=== PATIENT | female | born 1940 | race Caucasian/White ===

== ENCOUNTER 2024-11-14 08:58 | Outpatient (CLI) | payer MEDICARE, SELFPAY ==
--- OUTSIDE RECORDS SUMMARY | 2024-11-14 09:50 | XMS_ITS | Encounter Summary ---
Author Organization [facility] Address [address] [place] [address] Phone Care Team Providers Care Chrome Cleaner Name Role Phone Martinez Boyce MD Unavailable [phone] Jacob Miranda DPM Unavailable [phone] Abel Middleton Primary Care Provider Abel Middleton Primary Care Provider He Whitney MD Primary Care Provider [phone] Encounter Details Date Type Department Care Team (Late st Contact Info) Description 04/16/2022 Telephone [facility] Surgery [address] [place] [address] [address] [place] [address] [place] Social History Tobacco Use Types Packs/Day Years Used Date Smoking Tobacco: Never Smokeless Tobacco: Never Alcohol Use Standard Drinks/Week Comments No 0 (1 standard drink = 0.6 oz pur e alcohol) PHQ-2 Answer Date Recorded PHQ-2 Total Score (If total score is 3 or more points, staff should administer the PHQ-9) 0 04/10/2022 Comments No Sex and Gender Information Value Date Recorded Sex Assigned at Not on file Legal Sex Female 11:51 PM [employer] Gender Identity Not on file Sexual Orientation Not on file documented as of this encounter Plan of Treatment Not on file documented as of this encounter Visit Diagnoses Not on filedocumented in this encounter Care Teams Chrome Cleaner Relationship Specialty Start Date End Date Abel Middleton PA [address] [place] [address] [place] [address] PCP - General Internal Medicine 05/08/22 05/17/24 Abel Middleton PA [address] [place] [address] [place] [address] PCP - General Internal Medicine 01/31/22 05/07/22 He Whitney MD [address] [place] [address] [place] [address] PCP - General Family Practice 06/01/24 Martinez Boyce MD [address] [facility] [address] [place] [address] Referring Physician Gastroenterology 04/12/18 01/10/24 Jacob Miranda, DPM [address] [place] [address] Consulting Physician Orthopedic Surgery 07/23/21 documented as of this encounter
--- OUTSIDE RECORDS SUMMARY | 2024-11-14 09:50 | XMS_ITS | Clinical Summary ---
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 100 each 3 1 Active lancets (ACCU-CHEK SOFTCLIX LANCETS) misc USE 1 DAILY 100 each 7 Active blood glucose diagnostic (ACCU-CHEK SMARTVIEW TEST STRIP) stripIndication s:Type 2 diabetes mellitus with complication, with long-term current use of insulin (HCC) Test once daily 50 each 11 8 Active acetaminophen (TYLENOL) 500 mg tablet Take 1 tablet (500 mg total) by mouth every 6 (six) hours as needed for pain Active cinnamon bark 500 mg capsule Take 2 capsules (1,000 mg total) by mouth every morning supplement Active cetirizine (ZyrTEC) 10 mg tablet Take 1 tablet (10 mg total) by mouth daily Active cholecalciferol (VITAMIN D-3) 5,000 unit capsule Take 1 capsule (5,000 Units total) by mouth daily Active losartan (COZAAR) 100 mg tablet Take 1 tablet by mouth once daily 90 tablet 3 3 Active clopidogreL (PLAVIX) 75 mg tablet Take 1 tablet by mouth once daily 90 tablet 3 3 Active spironolactone (ALDACTONE) 25 mg tablet Take 1 tablet by mouth once daily 90 tablet 3 3 Active alendronate (FOSAMAX) 70 mg tablet Take 1 tablet (70 mg total) by mouth every 7 days Take in the morning with a full glass of water, on an empty stomach, and do not take anything else by mouth or lie down for the next 30 min. 12 tablet 4 4 01/20/20 25 Active atorvastatin (LIPITOR) 10 mg tablet Take 1 tablet (10 mg total) by mouth daily 90 tablet 3 4 Active Active Problems Problem Noted Date Diagnosed Date Morbid obesity with BMI of 45.0-49.9, adult 04/09 Assessment & Plan (09/10/2023 6:58 AM STAFF CONSULTANT): The patient was counseled on the importance of maintaining a healthy weight and the risks of obesity. Weight loss recommended. Assessment & Plan (05/06/2023 12:37 PM CDT): She was counseled on the importance of maintaining a healthy weight and the risks of obesity. Weight loss recommended. Pure hypercholesterolemia 11/21/2022 Assessment & Plan (01/11/2024 7:45 AM CDT): Counseled on heart healthy diet exercise Assessment & Plan (09/10/2023 6:58 AM STAFF CONSULTANT): Counseled on heart healthy diet exercise Left carpal tunnel syndrome 04/14/2022 Overview (04/14/2022): Added automatically from request for surgery [id number] Pronator syndrome of left upper extremity 2021 Overview (04/14/2022): Added automatically from request for surgery [id number] Varicose veins of right lower extremity 07/23/20 20 Assessment & Plan (07/23/2020 3:00 PM STAFF CONSULTANT): Pain brings her in wory about Dvt. Pain r lower leg And b=moves some from calf to lower leg . No swelling no edema. Ankle not inflamed or tender. Sleeping in c hair with foot down Thru night 1/2 the night Does not allowthe pressure off wear suport hose unless can gethte leg up and withhte back and hip will struggle to get up. enougoh no signs clot Excessive vitamin B12 intake 07/03/2020 Assessment & Plan (03/18/2021 10:47 AM CDT): Vit b12 from 3000 to 716 and now 490. 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 Assessment & Plan (07/03/2020 9:48 AM CDT): Mild carpal tunnel a1c at 7.0 and good for her at this age no changsDiabetes management or controll revolves around several core concepts : weight controll,controlling the intake of rapidly absorbed sugars(read simple carbs that get rapidly absorbed such as sweetened tea,sugared soda,fruit juices or portions of fruit over 1/2 cup at a time) as well at the need to increase the sugar burned up through an n increase in your baseline activity.Breads,potatotes(white,yellow,sweet are all the same),most cereals and noodles all breakdown to sugar rapidly. This rapid breakdown or absorption challenges the body into handling this surge of sugar. The more these factors are controlled the more the sugar will be controlled. Assessment & Plan (08/01/2019 10:23 AM STAFF CONSULTANT): Consider cockcup splints and report droping things Assessment & Plan (03/30/2019 3:13 PM CDT): Bilateral carpal tunnel and not D ropoing things and l much more issue then r. Ulnar nerve as well . 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 If worse then neuro test. Type 2 diabetes mellitus with hyperlipidemia Assessment & Plan (01/11/2024 7:45 AM CDT): The patient was counseled on a heart-healthy, diabetic-friendly diet, as well as life-style modification. Education provided on the diagnosis and risks of the disease. We will continue to monitor routine labs. Additionally, the patient was counseled on routine diabetic eye exams, foot exams, and other preventive care. Assessment & Plan (09/10/2023 6:58 AM STAFF CONSULTANT): The patient was counseled on a heart-healthy, diabetic-friendly diet, as well as life-style modification. Education provided on the diagnosis and risks of the disease. We will continue to monitor routine labs. Additionally, the patient was counseled on routine diabetic eye exams, foot exams, and other preventive care. Assessment & Plan (05/06/2023 12:37 PM CDT): The patient was counseled on a heart-healthy, diabetic-friendly diet, as well as life-style modification. Education provided on the diagnosis and risks of the disease. We will continue to monitor routine labs. Additionally, She was counseled on routine diabetic eye exams, foot exams, and other preventive care. Assessment & Plan (07/24/2022 9:34 AM STAFF CONSULTANT): The patient was counseled on a heart-healthy, diabetic-friendly diet, as well as life-style modification. Education provided on the diagnosis and risks of the disease. We will continue to monitor routine labs. Additionally, the patient was counseled on routine diabetic eye exams, foot exams, and other preventive care. Assessment & Plan (04/10/2022 9:28 AM CDT): ldl at 73 and was 62. If drift up wotul pusph lower on 10 mg nowYour cholesterol in the form of ldl (bad) cholesterol,hdl(good) cholesterol and triglycerides are monitored. The triglycerides respond to reduction/controll of your simple carbs/sugars In such items as sugared soda/sweet tea along with fruit juices(containing natural sugar) even if no added sugar is added. LDL cholesterol is reduced with reducing daily intake of fats and yong. saturated fats. The monosaturated fats like olive oil are not harmful except in the calories they contained. Whole milk cheese needs to be remembered along with whole milk products And limited. Assessment & Plan (12/04/2021 8:08 AM CDT): The patient was counseled on a heart-healthy, diabetic-friendly diet, as well as life-style modification. Education provided on the diagnosis and risks of the disease. We will continue to monitor routine labs. Additionally, the patient was counseled on routine diabetic eye exams, foot exams, and other preventive care. Assessment & Plan (07/23/2021 10:50 AM STAFF CONSULTANT): L;dl at 57 and good and cont meds as on Your cholesterol in the form of ldl (bad) cholesterol,hdl(good) cholesterol and triglycerides are monitored. The triglycerides respond to reduction/controll of your simple carbs/sugars In such items as sugared soda/sweet tea along with fruit juices(containing natural sugar) even if no added sugar is added. LDL cholesterol is reduced with reducing daily intake of fats and yong. saturated fats. The monosaturated fats like olive oil are not harmful except in the calories they contained. Whole milk cheese needs to be remembered along with whole milk products And limited. Assessment & Plan (03/18/2021 10:48 AM CDT): ldl at 65 and was 71 so keep same and a1c drifting down from 7.1 and 6.9 and now 6.76 so driftingdown and better and staywth what dieet doing Your cholesterol in the form of ldl (bad) cholesterol,hdl(good) cholesterol and triglycerides are monitored. The triglycerides respond to reduction/controll of your simple carbs/sugars In such items as sugared soda/sweet tea along with fruit juices(containing natural sugar) even if no added sugar is added. LDL cholesterol is reduced with reducing daily intake of fats and yong. saturated fats. The monosaturated fats like olive oil are not harmful except in the calories they contained. Whole milk cheese needs to be remembered along with whole milk products And limited. Assessment & Plan (11/13/2020 9:53 AM STAFF CONSULTANT): ldl at 71 and would levave alone. Your cholesterol in the form of ldl (bad) cholesterol,hdl(good) cholesterol and triglycerides are monitored. The triglycerides respond to reduction/controll of your simple carbs/sugars In such items as sugared soda/sweet tea along with fruit juices(containing natural sugar) even if no added sugar is added. LDL cholesterol is reduced with reducing daily intake of fats and yong. saturated fats. The monosaturated fats like olive oil are not harmful except in the calories they contained. Whole milk cheese needs to be remembered along with whole milk products And limited. Assessment & Plan (07/03/2020 9:50 AM CDT): ldl at 50 and g raet and no chages in medsYour cholesterol in the form of ldl (bad) cholesterol,hdl(good) cholesterol and triglycerides are monitored. The triglycerides respond to reduction/controll of your simple carbs/sugars In such items as sugared soda/sweet tea along with fruit juices(containing natural sugar) even if no added sugar is added. LDL cholesterol is reduced with reducing daily intake of fats and yong. saturated fats. The monosaturated fats like olive oil are not harmful except in the calories they contained. Whole milk cheese needs to be remembered along with whole milk products And limited. Assessment & Plan (08/01/2019 10:22 AM STAFF CONSULTANT): a1c at 6.6 and 6.5 cutoff no changes in meds and diet and ldl at 76 and good for now na1c up some and watch Holidays some and if goes nooooooooooore then consider med changedYour cholesterol in the form of ldl (bad) cholesterol,hdl(good) cholesterol and triglycerides are monitored. The triglycerides respond to reduction/controll of your simple carbs/sugars In such items as sugared soda/sweet tea along with fruit juices(containing natural sugar) even if no added sugar is added. LDL cholesterol is reduced with reducing daily intake of fats and yong. saturated fats. The monosaturated fats like olive oil are not harmful except in the calories they contained. Whole milk cheese needs to be remembered along with whole milk products And limited.Diabetes management or controll revolves around several core concepts : weight controll,controlling the intake of rapidly absorbed sugars(read simple carbs that get rapidly absorbed such as sweetened tea,sugared soda,fruit juices or portions of fruit over 1/2 cup at a time) as well at the need to increase the sugar burned up through an n increase in your baseline activity.Breads,potatotes(white,yellow,sweet are all the same),most cereals and noodles all breakdown to sugar rapidly. This rapid breakdown or absorption challenges the body into handling this surge of sugar. The more these factors are controlled the more the sugar will be controlled. Assessment & Plan (03/30/2019 3:06 PM CDT): ldl at 81 dn with arterial isxue want tighter. On pravastatin and 20 will ask to chanvged to atorvastin 10 and will be alittle more potent and beeter for brain. Your cholesterol in the form of ldl (bad) cholesterol,hdl(good) cholesterol and triglycerides are monitored. The triglycerides respond to reduction/controll of your simple carbs/sugars In such items as sugared soda/sweet tea along with fruit juices(containing natural sugar) even if no added sugar is added. LDL cholesterol is reduced with reducing daily intake of fats and yong. saturated fats. The monosaturated fats like olive oil are not harmful except in the calories they contained. Whole milk cheese needs to be remembered along with whole milk products And limited. Assessment & Plan (11/22/2018 9:22 AM CDT): ldl at 72 and great and stable andhte a1c at 6.5 and well e controlled.no changesYour cholesterol in the form of ldl (bad) cholesterol,hdl(good) cholesterol and triglycerides are monitored. The triglycerides respond to reduction/controll of your simple carbs/sugars In such items as sugared soda/sweet tea along with fruit juices(containing natural sugar) even if no added sugar is added. LDL cholesterol is reduced with reducing daily intake of fats and yong. saturated fats. The monosaturated fats like olive oil are not harmful except in the calories they contained. Whole milk cheese needs to be remembered along with whole milk products And limited.Diabetes management or controll revolves around several core concepts : weight controll,controlling the intake of rapidly absorbed sugars(read simple carbs that get rapidly absorbed such as sweetened tea,sugared soda,fruit juices or portions of fruit over 1/2 cup at a time) as well at the need to increase the sugar burned up through an n increase in your baseline activity.Breads,potatotes(white,yellow,sweet are all the same),most cereals and noodles all breakdown to sugar rapidly. This rapid breakdown or absorption challenges the body into handling this surge of sugar. The more these factors are controlled the more the sugar will be controlled. Assessment & Plan (03/05/2018 10:01 AM CDT): ldl well less the 100. Cont eds anddietYour cholesterol in the form of ldl (bad) cholesterol,hdl(good) cholesterol and triglycerides are monitored. The triglycerides respond to reduction/controll of your simple carbs/sugars In such items as sugared soda/sweet tea along with fruit juices(containing natural sugar) even if no added sugar is added. LDL cholesterol is reduced with reducing daily intake of fats and yong. saturated fats. The monosaturated fats like olive oil are not harmful except in the calories they contained. Whole milk cheese needs to be remembered along with whole milk products And limited. Medicare annual wellness visit, subsequent 11/04 Assessment & Plan (09/10/2023 6:58 AM STAFF CONSULTANT): Discussed community resources and any need for referrals. Health risk assessment reviewed. Providers and care team suppliers up-to-date. Age-appropriate Medicare preventive services check list reviewed. Discussed physical activities. Assessment & Plan (07/23/2021 10:53 AM STAFF CONSULTANT): Well exzm depreosn screen neg and score 0. Cognitive screen neg. Out aged colon and armani. Had covid and p shot series shingles shot sseries Flu shot Had. Assessment & Plan (07/03/2020 9:52 AM CDT): Mod fall risk depreisn screen nl cog screen nl colon up to date flu shot and p shots up to datehad shingles shot s. Look at repeat p 23 on retuorn as 18 yrs. Assessment & Plan (03/30/2019 3:11 PM CDT): Mod fall risk dpressino screen nl.l dementia screen nll colon up to date agrees to have armani.had flu shot and hs had both p shtos consider shingles shot Assessment & Plan (11/04/2017 10:43 AM STAFF CONSULTANT): 5 yrs from last and proposed to repeat in 5yyrs. Colon oscopy versus cologuard was discussed Left-sided carotid artery disease 11/04/2017 Assessment & Plan (07/03/2020 9:48 AM CDT): Tight risk and will Recheck in spsring Assessment & Plan (03/30/2019 3:04 PM CDT): On plavix and not asa as can see hives with as and repeat in a yr + Assessment & Plan (11/22/2018 9:24 AM CDT): Several lyrs since checked and work to get D one Before return Assessment & Plan (11/04/2017 10:44 AM STAFF CONSULTANT): Mild and new findign . On plavix Risk conttrrolled and repeat in 1-2 yrs Venous stasis dermatitis of both lower extremiti es 06/30/2017 Assessment & Plan (06/30/2017 9:39 AM CDT): Pain apears veinous and sjupport hose should help the xcan of the arteries will ease mind and prove not leg losing risks. Lumbago with sciatica, left side 02/18/2017 Assessment & Plan (02/18/2017 10:42 AM CDT): The intermittent pain that Ebbs and fluxs with relief from tyleno wouldnot change a pproach and More activity and more wt off to help Vitamin D deficiency 01/21/2014 Overview (12/12/2016): VITAMIN D DEFICIENCY NOS Assessment & Plan (11/13/2020 9:51 AM STAFF CONSULTANT): Vit d great and no chages and keep meds same Assessment & Plan (07/03/2020 9:49 AM CDT): Check on return Osteoporosis 01/21/2014 Overview (12/12/2016): OSTEOPOROSIS NEC Hypertension associated with diabetes 01/21/2014 Overview (12/12/2016): BENIGN HYPERTENSION Assessment & Plan (01/11/2024 7:45 AM CDT): Recommend DASH diet, heart healthy lifestyle, exercise. Discussed the risks of hypertension. Assessment & Plan (09/10/2023 6:58 AM STAFF CONSULTANT): Recommend DASH diet, heart healthy lifestyle, exercise. Discussed the risks of hypertension. Assessment & Plan (05/06/2023 12:38 PM CDT): Recommend DASH diet, heart-healthy lifestyle, exercise. Discussed the risks of hypertension. Assessment & Plan (04/10/2022 9:27 AM CDT): bp good and a1c at 6.6 andstable diet Hypertension, Medical treament revolves around weight control, salt management, and meds when necessary. long as weight loss is necessary and you are able to drop weight we can cont to monitor the blood pressure and not add meds. Once the weight is not changing then it becomes nesessary to add meds to be able to reach the goal bp.Diabetes management or controll revolves around several core concepts : weight controll,controlling the intake of rapidly absorbed sugars(read simple carbs that get rapidly absorbed such as sweetened tea,sugared soda,fruit juices or portions of fruit over 1/2 cup at a time) as well at the need to increase the sugar burned up through an n increase in your baseline activity.Breads,potatotes(white,yellow,sweet are all the same),most cereals and noodles all breakdown to sugar rapidly. This rapid breakdown or absorption challenges the body into handling this surge of sugar. The more these factors are controlled the more the sugar will be controlled. Assessment & Plan (07/23/2021 10:49 AM STAFF CONSULTANT): a1c dropped reg to 6.5r now and cont meds as on the bp good and cont meds as no chags in meds Hypertension, Medical treament revolves around weight control, salt management, and meds when necessary. long as weight loss is necessary and you are able to drop weight we can cont to monitor the blood pressure and not add meds. Once the weight is not changing then it becomes nesessary to add meds to be able to reach the goal bp.Diabetes management or controll revolves around several core concepts : weight controll,controlling the intake of rapidly absorbed sugars(read simple carbs that get rapidly absorbed such as sweetened tea,sugared soda,fruit juices or portions of fruit over 1/2 cup at a time) as well at the need to increase the sugar burned up through an n increase in your baseline activity.Breads,potatotes(white,yellow,sweet are all the same),most cereals and noodles all breakdown to sugar rapidly. This rapid breakdown or absorption challenges the body into handling this surge of sugar. The more these factors are controlled the more the sugar will be controlled. Assessment & Plan (03/18/2021 10:50 AM CDT): bp high nl and stay on meds and watch and keep meds sameHypertension, Medical treament revolves around weight control, salt management, and meds when necessary. long as weight loss is necessary and you are able to drop weight we can cont to monitor the blood pressure and not add meds. Once the weight is not changing then it becomes nesessary to add meds to be able to reach the goal bp. Assessment & Plan (11/13/2020 9:52 AM STAFF CONSULTANT): The bp good and a1c 6.9 stable and cont meds and diets as onHypertension, Medical treament revolves around weight control, salt management, and meds when necessary. long as weight loss is necessary and you are able to drop weight we can cont to monitor the blood pressure and not add meds. Once the weight is not changing then it becomes nesessary to add meds to be able to reach the goal bp.Diabetes management or controll revolves around several core concepts : weight controll,controlling the intake of rapidly absorbed sugars(read simple carbs that get rapidly absorbed such as sweetened tea,sugared soda,fruit juices or portions of fruit over 1/2 cup at a time) as well at the need to increase the sugar burned up through an n increase in your baseline activity.Breads,potatotes(white,yellow,sweet are all the same),most cereals and noodles all breakdown to sugar rapidly. This rapid breakdown or absorption challenges the body into handling this surge of sugar. The more these factors are controlled the more the sugar will be controlled. Assessment & Plan (07/03/2020 9:49 AM CDT): The bp good and no c hagds inmedsHypertension, Medical treament revolves around weight control, salt management, and meds when necessary. long as weight loss is necessary and you are able to drop weight we can cont to monitor the blood pressure and not add meds. Once the weight is not changing then it becomes nesessary to add meds to be able to reach the goal bp. Assessment & Plan (02/22/2020 9:15 PM CDT): Recommend DASH diet, heart-healthy lifestyle, exercise. Discussed the risks of hypertension. Assessment & Plan (08/01/2019 10:22 AM STAFF CONSULTANT): The bp good and no chanes and monitor. Hypertension, Medical treament revolves around weight control, salt management, and meds when necessary. long as weight loss is necessary and you are able to drop weight we can cont to monitor the blood pressure and not add meds. Once the weight is not changing then it becomes nesessary to add meds to be able to reach the goal bp. Assessment & Plan (03/30/2019 3:05 PM CDT): htn good and no changes and a1c at 6.1 and no changesHypertension, Medical treament revolves around weight control, salt management, and meds when necessary. long as weight loss is necessary and you are able to drop weight we can cont to monitor the blood pressure and not add meds. Once the weight is not changing then it becomes nesessary to add meds to be able to reach the goal bp. Assessment & Plan (11/22/2018 9:22 AM CDT): The bp good and no changes. Hypertension, Medical treament revolves around weight control, salt management, and meds when necessary. long as weight loss is necessary and you are able to drop weight we can cont to monitor the blood pressure and not add meds. Once the weight is not changing then it becomes nesessary to add meds to be able to reach the goal bp. Assessment & Plan (08/19/2018 4:04 PM STAFF CONSULTANT): Recommend DASH diet, heart-healthy lifestyle, exercise. Discussed the risks of hypertension. Assessment & Plan (03/05/2018 10:00 AM CDT): bp well econtrolled and a1c at a1c at 6.4 and bp gereat. No changes and watch dietHypertension, Medical treament revolves around weight control, salt management, and meds when necessary. long as weight loss is necessary and you are able to drop weight we can cont to monitor the blood pressure and not add meds. Once the weight is not changing then it becomes nesessary to add meds to be able to reach the goal bp.Diabetes management or controll revolves around several core concepts : weight controll,controlling the intake of rapidly absorbed sugars(read simple carbs that get rapidly absorbed such as sweetened tea,sugared soda,fruit juices or portions of fruit over 1/2 cup at a time) as well at the need to increase the sugar burned up through an n increase in your baseline activity.Breads,potatotes(white,yellow,sweet are all the same),most cereals and noodles all breakdown to sugar rapidly. This rapid breakdown or absorption challenges the body into handling this surge of sugar. The more these factors are controlled the more the sugar will be controlled. Assessment & Plan (11/04/2017 10:42 AM STAFF CONSULTANT): As wt dropped and palns on more will cut the amlodipine into 1/2 and take 2.5 and se bp effect and if lose another 5 lbs thwen sstop and report off on return. Want to see early if down another 10 lbs. a1c at 6.[address] payan.Hypertension, Medical treament revolves around weight control, salt management, and meds when necessary. long as weight loss is necessary and you are able to drop weight we can cont to monitor the blood pressure and not add meds. Once the weight is not changing then it becomes nesessary to add meds to be able to reach the goal bp.Diabetes management or controll revolves around several core concepts : weight controll,controlling the intake of rapidly absorbed sugars(read simple carbs that get rapidly absorbed such as sweetened tea,sugared soda,fruit juices or portions of fruit over 1/2 cup at a time) as well at the need to increase the sugar burned up through an n increase in your baseline activity.Breads,potatotes(white,yellow,sweet are all the same),most cereals and noodles all breakdown to sugar rapidly. This rapid breakdown or absorption challenges the body into handling this surge of sugar. The more these factors are controlled the more the sugar will be controlled. Assessment & Plan (06/30/2017 9:38 AM CDT): .bpgood and non changesHypertension, Medical treament revolves around weight control, salt management, and meds when necessary. long as weight loss is necessary and you are able to drop weight we can cont to monitor the blood pressure and not add meds. Once the weight is not changing then it becomes nesessary to add meds to be able to reach the goal bp. Assessment & Plan (02/18/2017 10:42 AM CDT): bp good and no cohanges. Would expect to dropas wt comes offHypertension, Medical treament revolves around weight control, salt management, and meds when necessary. long as weight loss is necessary and you are able to drop weight we can cont to monitor the blood pressure and not add meds. Once the weight is not changing then it becomes nesessary to add meds to be able to reach the goal bp. Resolved Problems Problem Noted Date Diagnosed Date Resolved Date Pre-operative clearance 04/14/202207/08 Assessment & Plan (04/14/2022 3:33 PM CDT): Seeing plastics for surg,her Age, morbid obesity,mild diabetes all place her at a higher baseline risk. She is pretty standard for her underling status and not at higher risk or have any needs to adjust treaments or additional eval to undergo a elective nerve release. So cleared to undergo elective nerve release surg planned for the end of apr 28 Tubulovillous adenoma polyp of rectum 03/30/2019 08/01/2019 Assessment & Plan (03/30/2019 3:09 PM CDT): Found rectum summer 2017 and f/u colon to eval for removal At moderate risk for fall 03/30/2019 Assessment & Plan (07/23/2021 10:49 AM STAFF CONSULTANT): Mod fall rsik Assessment & Plan (07/03/2020 9:51 AM CDT): Mod fall risk Assessment & Plan (03/30/2019 3:10 PM CDT): Mod fall risk Adenomatous rectal polyp 03/02/2018 Overview (03/02/2018): Added automatically from request for surgery [id number] Hx of colonic polyps 11/11/2017 019 Overview (11/11/2017): Added automatically from request for surgery [id number] Morbid obesity with BMI of 5 0.0-59.9, adult ([facility]) 11/04/2017 07/24/2022 Assessment & Plan (04/10/2022 9:28 AM CDT): Morbid obesity is a bmi of 40 or more. Targeted weight loss with portion controll(calorie restriction) ,increased basal activity Levels along with adding an exercise program to lead to gradual weight loss,.Any program of change from weight watchers. To nutra system along with others work. Assessment & Plan (07/23/2021 10:48 AM STAFF CONSULTANT): Morbid obesity is a bmi of 40 or more. Targeted weight loss with portion controll(calorie restriction) ,increased basal activity Levels along with adding an exercise program to lead to gradual weight loss,.Any program of change from weight watchers. To nutra system along with others work. Assessment & Plan (03/18/2021 10:49 AM CDT): Morbid obesity is a bmi of 40 or more. Targeted weight loss with portion controll(calorie restriction) ,increased basal activity Levels along with adding an exercise program to lead to gradual weight loss,.Any program of change from weight watchers. To nutra system along with others work. Assessment & Plan (11/13/2020 9:53 AM STAFF CONSULTANT): Morbid obesity is a bmi of 40 or more. Targeted weight loss with portion controll(calorie restriction) ,increased basal activity Levels along with adding an exercise program to lead to gradual weight loss,.Any program of change from weight watchers. To nutra system along with others work. Assessment & Plan (07/23/2020 2:56 PM STAFF CONSULTANT): Morbid obesity is a bmi of 40 or more. Targeted weight loss with portion controll(calorie restriction) ,increased basal activity Levels along with adding an exercise program to lead to gradual weight loss,.Any program of change from weight watchers. To [employer] system along with others work. Assessment & Plan (07/03/2020 9:50 AM CDT): Morbid obesity is a bmi of 40 or more. Targeted weight loss with portion controll(calorie restriction) ,increased basal activity Levels along with adding an exercise program to lead to gradual weight loss,.Any program of change from weight watchers. To [employer] system along with others work. Assessment & Plan (02/22/2020 9:16 PM CDT): She was counseled on the importance of maintaining a healthy weight and the risks of obesity. Weight loss recommended. Assessment & Plan (08/01/2019 10:22 AM STAFF CONSULTANT): Morbid obesity is a bmi of 40 or more. Targeted weight loss with portion controll(calorie restriction) ,increased basal activity Levels along with adding an exercise program to lead to gradual weight loss,.Any program of change from weight watchers. To nutra system along with others work. Assessment & Plan (03/30/2019 3:02 PM CDT): Morbid obesity is a bmi of 40 or more. Targeted weight loss with portion controll(calorie restriction) ,increased basal activity Levels along with adding an exercise program to lead to gradual weight loss,.Any program of change from weight watchers. To nutra system along with others work. Assessment & Plan (11/04/2017 10:57 AM STAFF CONSULTANT): Morbid obesity is a bmi of 40 or more. Targeted weight loss with portion controll(calorie restriction) ,increased basal activity Levels along with adding an exercise program to lead to gradual weight loss,.Any program of change from weight watchers. To nutra system along with others work. Hyperlipidemia 09/23/2016 11/22/2018 Overview (12/12/2016): HYPERLIPIDEMIA NEC/NOS Assessment & Plan (11/04/2017 10:42 AM STAFF CONSULTANT): ldl at 68 and good. No changesYour cholesterol in the form of ldl (bad) cholesterol,hdl(good) cholesterol and triglycerides are monitored. The triglycerides respond to reduction/controll of your simple carbs/sugars In such items as sugared soda/sweet tea along with fruit juices(containing natural sugar) even if no added sugar is added. LDL cholesterol is reduced with reducing daily intake of fats and yong. saturated fats. The monosaturated fats like olive oil are not harmful except in the calories they contained. Whole milk cheese needs to be remembered along with whole milk products And limited. Assessment & Plan (06/30/2017 9:40 AM CDT): ldl at 80 and good and no changesYour cholesterol in the form of ldl (bad) cholesterol,hdl(good) cholesterol and triglycerides are monitored. The triglycerides respond to reduction/controll of your simple carbs/sugars In such items as sugared soda/sweet tea along with fruit juices(containing natural sugar) even if no added sugar is added. LDL cholesterol is reduced with reducing daily intake of fats and yong. saturated fats. The monosaturated fats like olive oil are not harmful except in the calories they contained. Whole milk cheese needs to be remembered along with whole milk products And limited. Assessment & Plan (02/18/2017 10:43 AM CDT): ldl at 75 and less then 100 ideal so nonchangesYour cholesterol in the form of ldl (bad) cholesterol,hdl(good) cholesterol and triglycerides are monitored. The triglycerides respond to reduction/controll of your simple carbs/sugars In such items as sugared soda/sweet tea along with fruit juices(containing natural sugar) even if no added sugar is added. LDL cholesterol is reduced with reducing daily intake of fats and yong. saturated fats. The monosaturated fats like olive oil are not harmful except in the calories they contained. Whole milk cheese needs to be remembered along with whole milk products And limited.. Type 2 diabetes mellitus wit hout complication, without long-term current use of insulin 01/21/2014 11/22/2018 Overview (12/12/2016): DMII WO CMP NT ST SAPNAR Assessment & Plan (08/19/2018 4:04 PM STAFF CONSULTANT): The patient was counseled on a heart-healthy, diabetic-friendly diet, as well as life-style modification. Education provided on the diagnosis and risks of the disease. We will continue to monitor routine labs. Additionally, She was counseled on routine diabetic eye exams, foot exams, and other preventive care. Assessment & Plan (06/30/2017 9:39 AM CDT): a1c at 6.3 and 6.5 diabetes. So goodDiabetes management or controll revolves around several core concepts : weight controll,controlling the intake of rapidly absorbed sugars(read simple carbs that get rapidly absorbed such as sweetened tea,sugared soda,fruit juices or portions of fruit over 1/2 cup at a time) as well at the need to increase the sugar burned up through an n increase in your baseline activity.Breads,potatotes(white,yellow,sweet are all the same),most cereals and noodles all breakdown to sugar rapidly. This rapid breakdown or absorption challenges the body into handling this surge of sugar. The more these factors are controlled the more the sugar will be controlled. Assessment & Plan (02/18/2017 10:43 AM CDT): a1c at 6.2 and dropped to less then D.m. Cont with diet.wt off and will drop furtherDiabetes management or controll revolves around several core concepts : weight controll,controlling the intake of rapidly absorbed sugars(read simple carbs that get rapidly absorbed such as sweetened tea,sugared soda,fruit juices or portions of fruit over 1/2 cup at a time) as well at the need to increase the sugar burned up through an n increase in your baseline activity.Breads,potatotes(white,yellow,sweet are all the same),most cereals and noodles all breakdown to sugar rapidly. This rapid breakdown or absorption challenges the body into handling this surge of sugar. The more these factors are controlled the more the sugar will be controlled. Morbid obesity 01/21/2014 11/22/2018 Overview (12/12/2016): OBESITY NOS Assessment & Plan (11/04/2017 10:58 AM STAFF CONSULTANT): Morbid obesity is a bmi of 40 or more. Targeted weight loss with portion controll(calorie restriction) ,increased basal activity Levels along with adding an exercise program to lead to gradual weight loss,.Any program of change from weight watchers. To nutra system along with others work. Assessment & Plan (02/18/2017 10:44 AM CDT): Losing weight and cont to work on and Succeed as yo are doingMorbid obesity is a bmi of 40 or more. Targeted weight loss with portion controll(calorie restriction) ,increased basal activity Levels along with adding an exercise program to lead to gradual weight loss,.Any program of change from weight watchers. To nutra system along with others work. [facility] state 01/21/2014 07/24/2022 Overview (12/12/2016): ALLERGY, UNSPECIFIED Assessment & Plan (06/30/2017 9:42 AM CDT): Stay on [facility]. Trial adding singulair. Encounters Date Type Department Care Team Description 08/24/2024 11:15 AM STAFF CONSULTANT Therapy [facility] Physical Therapy [facility] [place] [address] Jozef Cuenca, PT Dorsalgia, unspecified (Primary Dx); Low back pain, unspecified back pain laterality, unspecified chronicity, unspecified whether sciatica present 08/17/2024 10:30 AM STAFF CONSULTANT Therapy [facility] [place] [address] Jozef Cuenca, PT Dorsalgia, unspecified (Primary Dx); Low back pain, unspecified back pain laterality, unspecified chronicity, unspecified whether sciatica present from Last 3 Months Immunizations Immunization Administration Dates Next Due Influenza, Quad, Adjuvantate d, Intramuscular 06/15/2023 Influenza, Quadrivalent, Hig h Dose, Preservative Free, Intrr 06/18/2022,06/26/2021,06/19/2020 Influenza, Split 06/07/2011 Influenza, Trivalent, High D ose, Split, Preservative Free, Intramuscular 06/30/2019,06/22/2018,06/30/2017,06/05,05/05/2015,06/08/2014,07/15/2013 Influenza, Unspecified 11/21/2022(Deferr ed: Patient Refused),06/22/2018 Moderna SARS-CoV-2 Monovalen t Vaccination (12+ YRS) 07/20/2021,11/13/2020,10/16/2020 Pneumococcal Conjugate PCV 13 11/15/2014 Pneumococcal Polysaccharide PPV23 07/18/2003 ZOSTER Recombinant 11/14/2019,08/01/2019 Surgical History Surgery Date Site/Laterality Comments OTHER SURGICAL HISTORY 09/07/2008 - 09/06/2009 R cataract surgery CHOLECYSTECTOMY Cholecystectomy SECTION c section x2 COLONOSCOPY 01/24/2013 CATARACT EXTRACTION BREAST BIOPSY 09/07/1983 - 09/06/1984 Left benign surgical bx RECTAL POLYPECTOMY Medical History Medical History Date Comments Hyperlipidemia Hyperlipidemia Hx Other Medical vit D def Hx Other Medical [address] [place] Diverticulosis Hypertension Type 2 diabetes mellitus (HCC) Arthritis Cataract Hypertension Arthritis Peripheral vascular disease Family History Medical History Relation Name Comments Colon cancer Brother 1 Other Brother 5 CA lung?; Other Brother 6 skin CA; Heart disease Brother 7 Heart disease; Other Brother 8 CA prostate; Other Father mineral ore processing labourer lung disease; Heart disease Mother Heart disease; Breast cancer Mother's Sister Breast cancer Nephew Breast cancer Niece 1 great niece Cancer, breast ; Breast cancer Niece 2 Breast cancer Other 3 Cancer, breast ; Breast cancer Paternal Grandmother Cancer , breast; Leukemia Sister 3 Cancer -leukemi a; Heart disease Sister 4 Heart disease; Ovarian cancer Neg Hx Thyroid cancer Neg Hx Relation Name Status Comments Brother 1 Alive Brother 2 Alive Brother 3 Alive Brother 4 Alive Brother 5 Brother 6 Brother 7 Brother 8 Father Alive Mother Alive Mother's Sister Nephew Niece 1 great niece Other Niece 2 Other 1 Alive Other 2 Alive Other 3 Paternal Grandmother Alive Sister 1 Alive Sister 2 Sister 3 Sister 4 Social History Tobacco Use Types Packs/Day Years Used Date Smoking Tobacco: Never Smokeless Tobacco: Never Tobacco Cessation:Counseling Given: Not Answered Alcohol Use Standard Drinks/Week Comments No 0 (1 standard drink = 0.6 oz pur e alcohol) AUDIT-C Answer Date Recorded Q1: How often do you have a drink containing alcohol? Never 09/10/2023 Q2: How many drinks containi ng alcohol do you have on a typical day when you are drinking? Patient does not drink Q3: How often do you have si x or more drinks on one occasion? Never 09/10/2023 PHQ-2 Answer Date Recorded PHQ-2 Total Score (If total score is 3 or more points, staff should administer the PHQ-9) 0 01/11/2024 Comments No Sex and Gender Information Value Date Recorded Sex Assigned at Not on file Legal Sex Female 11:51 PM STAFF CONSULTANT Gender Identity Not on file Sexual Orientation Not on file Obstetrics History Para Term AB IAB SAB Ectopic Multiple Livin g Live Births 2 2 2 Date Outcome GA Total Labor Labor/2nd/3rd Weight Sex Type Anes PTL April A1 A5 Name Clin Term Term Last Filed Vital Signs Vital Sign Reading Time Taken Comments Blood Pressure 132/70 03/09/2024 11:00 AM CDT Pulse 81 03/09/2024 11:00 AM CDT Temperature 36.9 C (98.5 F) 03/09/2024 11:00 AM CDT Respiratory Rate 22 03/09/2024 11:00 AM CDT Oxygen Saturation 97% 03/09/2024 11:00 AM CDT Inhaled Oxygen Concentration - - Weight 105.7 kg (233 lb) 03/09/2024 11:00 AM CDT Height 147.3 cm (4' 10 ) 03/09/2024 11:00 AM CDT Body Mass Index 48.7 03/09/2024 11:00 AM CDT Plan of Treatment Health Maintenance Due Date Last Done Comments DTaP/Tdap/Td Vaccine (1 - Tdap) 1951 Foot Exam 05/06/2024 05/06/2023, 07/08, 11/13/2020, Additional history exists Covid-19 Vaccine (2023-2 5 season) 2024 06/23/2023, 07/20/2021, 11/13/2020, Additional history exists Influenza Vaccine (#1) 2024 , 06/18/2022, 06/26/2021, Additional history exists Hemoglobin A1C 06/28/2024 12/28/2023, 08/08, 03/24/2023, Additional history exists Dilated Eye Exam 07/21/2024 07/21/2022, 11/2019, 10/29/2018 Albumin Creatinine Ratio, Urine 08/27/2024 08/27/2023, 03/24/2023, 11/26/2021, Additional history exists Well Visit 65+ 09/10/2024 09/10/2023, 07/08, 07/23/2021, Additional history exists Depression Screening 01/10/2025 01/11/2024, 09/10/2023, 05/06/2023, Additional history exists Fall Risk Assessment 01/10/2025 01/11/2024, 09/10/2023, 05/06/2023, Additional history exists Breast Cancer Screening-Mammogram 01/18/2025 01/19/2024, 12/29/2022, 12/27/2021, Additional history exists Lipid Panel 04/27/2025 04/27/2024, 12/07, 08/27/2023, Additional history exists eGFR 04/27/2025 04/27/2024, 12/07, 08/27/2023, Additional history exists Pneumococcal vaccine 65+ Completed 11/15/2014, 07/08 Colon Cancer Screening-CT Colonography Discontinued 07/13/2019, 07/13/2019, 02/22/2018, Additional history exists Colon Cancer Screening-Colonoscopy Discontinued 07/13/2019, 07/13/2019, 02/22/2018, Additional history exists Colon Cancer Screening-DNA Stool Discontinued 07/13/2019, 07/13/2019, 02/22/2018, Additional history exists Colon Cancer Screening-FIT Discontinued 07/13, 07/13/2019, 02/22/2018, Additional history exists Colon Cancer Screening-Sigmoidoscopy Discontinued 07/13/2019, 07/13/2019, 02/22/2018, Additional history exists Zoster Vaccine Completed 11/14/2019, 08/01/2019 Hepatitis B Screening Completed 04/27/2024 Medical Devices Implanted Type Area Cost Report Clerk Device Identifier Shelf Expiration Date Model / Serial / Lot [employer] Axoguard 7mm 40mm Nerve Protector Tissue Porcine Extracellular [id number] - [id number] Implanted:Qty: 1 on 05/06/2022 by Jose Alejandro Ortiz MD at [facility] Left: Arm [employer] 05/06/2023 [id number] / / [id number] Procedures Procedure Name Priority Date/Time Associated Diagnosis Comments EGFR Routine 04/27/2024 8:33 AM CDT Pure hypercholesterolemia LIPID PANEL Routine 04/27/2024 8:33 AM CDT Pure hypercholesterolemia SCREENING MAMMOGRAM BILATERAL W JOSH Schedule Routine, Read Routine (OP Routine) 01/19/2024 10:52 AM CDT Visit for screening mammogram HEMOGLOBIN A1C Routine 12/28/2023 8:21 AM CDT Hypertension associated with diabetes (CMS/HCC) Pure hypercholesterolemia Type 2 diabetes mellitus with hyperlipidemia (HCC) ALBUMIN CREATININE RATIO, URINE Routine 08/27/2023 8:08 AM STAFF CONSULTANT Type 2 diabetes mellitus with hyperlipidemia (HCC) Hypertension associated with diabetes (CMS/HCC) DIABETIC EYE EXAM Routine 07/21/2022 HM COLONOSCOPY Routine 07/13/2019 from Last 3 Months or Most Recently Relevant to Health Maintenance Results * eGFR (04/27/2024 8:33 AM CDT) eGFR 84 >=60 mL/min/1. 73 m2 Comment: Interpretive Data Reference Interval Normal >/= 90 mL/min/1.73m2 Mildly decreased* 60 - 89 mL/min/1.73m2 Mildly to moderately decreased 45 - 59 mL/min/1.73m2 Moderately to severely decreased 30 - 44 mL/min/1.73m2 Severely decreased 15 - 29 mL/min/1.73m2 Kidney Failure < 15 mL/min/1.73m2 *Relative to young adult level Estimated glomerular filtration rate is determined by the 2020 CKD-EPI equation recommended by the National Kidney Foundation (A Unifying Approach to GFR Estimation: Recommendations of the NKF-ASK Task Force on Reassessing the Inclusion of Race in Diagnosing Kidney Disease, JASN 2020). The CKD-EPI equation should not be used for patients with unstable renal function and has not been validated in children and those over 70. Current interpretive data was last reviewed 2021. Testing performed by: [facility], [address] [place] [address], [place]., [address] Blood 04/27/2024 8:33 AM CDT 04/27/2024 12:56 PM CDT us Abel [facility] BLOOD ORDERABLES Fi nal Result JAMEE DAVIS MORAN) 1 [facility] Department [place] [address] * Lipid panel (04/27/2024 8:33 AM CDT) Cholesterol 150 30 - 199 mg/dL Comment: Interpretive Data Ages < or = 19 years Acceptable: <170 mg/dL Borderline high: 170-199 mg/dL High: >or= 200 mg/dL Ages > or = 20 years Desirable: <200 mg/dL Borderline high: 200-239 mg/dL High: >or= 240 mg/dL Literature References: 1. Expert Panel on Integrated Guidelines for Cardiovascular Health and Risk Reduction in Children and Adolescents. Pediatrics 2011;128:S213 2. NCEP Expert Panel. Circulation 2004;110:227 Current Interpretive Data was last revised on 2018. Testing performed by: [facility], [address] [place] [address]., [id number] Triglycerides 69 <=149 mg/dL [facility] ([facility]) Comment: Interpretive Data Ages < or = 9 years Acceptable: <75 mg/dL Borderline high: 75-99 mg/dL High: >or= 100 mg/dL Ages 10 to 20 years Acceptable: <90 mg/dL Borderline high: 90-129 mg/dL High: >or= 130 mg/dL Ages > or = 20 years Desirable: <150 mg/dL Borderline high: 150-199 mg/dL High: 200-499 mg/dL Very high: >or= 499 mg/dL Literature References: 1. Expert Panel on Integrated Guidelines for Cardiovascular Health and Risk Reduction in Children and Adolescents. Pediatrics 2011;128:S213 2. NCEP Expert Panel. Circulation 2004;110:227 Current Interpretive Data was last revised on 2018. Testing performed by: [facility], [address] [place] [address]., [id number] HDL 55 >=40 mg/dL [facility] ([place]) Comment: Interpretive Data Ages < or = 19 years Acceptable: >45 mg/dL Borderline low: 40-45 mg/dL Low: <40 mg/dL Ages > or = 20 years Desirable: >or= 60 mg/dL Low: <40 mg/dL Literature References: 1. Expert Panel on Integrated Guidelines for Cardiovascular Health and Risk Reduction in Children and Adolescents. Pediatrics 2011;128:S213 2. NCEP Expert Panel. Circulation 2004;110:227 Current Interpretive Data was last revised on 2018. Testing performed by: [facility], [address] [place] [address]., [id number] LDL, calculated 81 <=129 mg/dL J[facility]EE [facility] ([place]) Comment: Interpretive Data Ages < or = 19 years Acceptable: <110 mg/dL Borderline high: 110-129 mg/dL High: >or= 130 mg/dL Ages > or = 20 years Optimal: <100 mg/dL Near optimal: 100-129 mg/dL Borderline high: 130-159 mg/dL High: >160 mg/dL Calculated using the Basil LDL-C estimating equation. This equation was implemented on 2024. Prior to this date LDL-C was estimated using the Friedewald equation. Literature References: 1. Expert Panel on Integrated Guidelines for Cardiovascular Health and Risk Reduction in Children and Adolescents. Pediatrics 2011;128:S213 2. NCEP Expert Panel. Circulation 2004;110:227 3. Basil Rivers et al. YUMIKO Cardiol. 2019January 05;5(5):540-548. doi: 10.1001/[email or web address].2020.0013 Current Interpretive Data was last revised on 2024. Testing performed by: [address] [address] Non-HDL Cholesterol 95 mg/dL JAMEE DAVIS (JERMAIN) Comment: Interpretive Data Ages < or = 19 years Acceptable: <120 mg/dL Borderline high: 120-144 mg/dL High: >145 mg/dL Ages > or = 20 years When triglycerides are >200 mg/dL, Non-HDL cholesterol is a secondary target of therapy with treatment goals that are 30 mg/dL greater than the LDL cholesterol target. Literature References: 1. Expert Panel on Integrated Guidelines for Cardiovascular Health and Risk Reduction in Children and Adolescents. Pediatrics 2011;128:S213 2. NCEP Expert Panel. Circulation 2004;110:227 Current Interpretive Data was last revised on 2018. Testing performed by: [facility], [address] [place] [address]., [address] Chol/HDL ratio 3 AMBROSIO DAVIS (JERMAIN) Comment:Testing performed by : [address] [address] Blood 04/27/2024 8:33 AM CDT 04/27/2024 12:44 PM CDT Narrative JAMEE DAVIS (JERMAIN) - 04/27/2024 2:40 PM CDT Fasting Abel MERCEDES LAB BLOOD ORDERABLES Fi nal Result JAMEE SANTIZO) 1 [facility] Department [place] [address] * Screening Mammogram Bilateral W Josh (01/19/2024 10:52 AM CDT) Anatomical Region Laterality Modality Breast Bilateral Mammography 01/19/2024 11:2 9 AM CDT Impressions 01/19/2024 11:29 AM CDT There is no mammographic evidence of malignancy. A 1 year screening mammogram is recommended. BI-RADS: 1 - Negative. The patient has been or will be contacted. The patient will be entered into a reminder system with a target due date of 1 year for her next mammogram. Electronically signed by: Yunier Mcadams M.D. Narrative 01/19/2024 11:29 AM CDT EXAMINATION: SCREENING MAMMOGRAM BILATERAL W JOSH ORDERING HEALTHCARE PROVIDER: ABEL BURRIS HISTORY: Routine screening mammography. COMPARISON: 12/29/2022, 12/27/2021, 12/26/2020, 05/30/2016 TECHNIQUE: CC and MLO views of the bilateral breasts were obtained with digital technique using breast tomosynthesis with C view. Computer aided detection was utilized. FINDINGS: DENSITY: The tissue of the bilateral breasts is almost entirely fatty. BREASTS: There are no suspicious masses, suspicious calcifications, or other suspicious findings in either breast. There has been no suspicious interval change. us Abel MERCEDES IMG MAMMO PROCEDURES Fi nal Result * (ABNORMAL) Hemoglobin A1c (12/28/2023 8:21 AM CDT) Hgb A1C 6.2(H) 4.0 - 5.6 % Comment:Testing performed by : [facility], [address] [place] [address], [place]., [address] Estimated Average Glucose 131 mg/dL [facility] ([place]) Comment: The ADA recommends reporting an estimated Average Glucose (eAG) with all Hemoglobin A1c results using the equation derived from a study of 507 normal and diabetic adults. Minority populations were underrepresented and children were not included. (Diabetes Care 31:7628-6326, 2008). The eAG is not equivalent to a fasting glucose. Testing performed by: [address] [address] Blood 12/28/2023 8:21 AM CDT 12/28/2023 12:25 PM CDT Narrative [facility] ([place]) - 12/28/2023 12:57 PM CDT fasting Abel MERCEDES LAB BLOOD ORDERABLES Fi nal Result JAMEE DAVIS (JERMAIN) 1 [facility] Department [place] [address] * Albumin Creatinine Ratio, Urine (08/27/2023 8:08 AM STAFF CONSULTANT) Albumin Ur <12.0 mg/L [facility] ([place]ER[place]) Comment: Interpretive Data No reference range established. Current interpretive data was last revised 2019. Testing performed by: [address] [address] Creatinine Ur 70.8 mg/dL [facility] ([place]) Comment: Interpretive Data No reference range established. Current interpretive data was last revised 2019. Testing performed by: [facility], [address] [place] [address]., [address] Albumin Creatinine Ratio, Ur <17 1 - 29 mg/g [facility] ([place]) Comment:Testing performed by : [facility], [address] [place] [address]., [address] Urine 08/27/2023 8:08 AM STAFF CONSULTANT 08/27/2023 12:53 PM STAFF CONSULTANT Narrative [facility] ([place]) - 08/27/2023 2:14 PM STAFF CONSULTANT fasting us Abel MERCEDES LAB URINE ORDERABLES Fi nal Result JAMEE [facility] JERMAIN) 1 [facility] Department [place] [address] * Diabetic Eye Exam (07/21/2022) Generic External Data Provider HEALTH MAINTENANC E Final Result * COLONOSCOPY (07/13/2019) Colonoscopy Normal Historical Provider HEALTH MAINTENANCE Final Result from Last 3 Months or Most Recently Relevant to Health Maintenance Insurance [employer] MEDICARE [place] [address] MEDICARE [employer] Advance Directives For more information, please contact: [phone] * Full Code (Latest Code Status on File) Date Activated Date Inactivated Comments 05/21/2018 7:11 PM 05/22/2018 5:26 PM * Full Code Date Activated Date Inactivated Comments 03/23/2018 10:20 AM 03/23/2018 4:04 PM * Full Code Date Activated Date Inactivated Comments 02/22/2018 7:27 AM 02/22/2018 11:55 AM Care Teams Livestock Trader Relationship Specialty Start Date End Date He Whitney MD [address] [place] [address] PCP - General Family Practice 06/01/24 Jacob Miranda, DPM [address] [place] [address] Consulting Physician Orthopedic Surgery 07/23/21
--- OUTSIDE RECORDS SUMMARY | 2024-11-14 09:50 | XMS_ITS | Encounter Summary ---
Author Organization [facility] Address [address] [place] [address] Phone Care Team Providers Care Emergency Medical Technician/Driver Name Role Phone Eusebio Dickerson MD Primary Care Provi henrry Martinez Boyce MD Unavailable [phone] Jacob Miranda DPM Unavailable Abel Middleton Primary Care Provider Abel Middleton Primary Care Provider Abel Middleton Primary Care Provider He Whitney MD Primary Care Provider [phone] Encounter Details Date Type Department Care Team (Late st Contact Info) Description 10/23/2017 Orders Only [facility] ProviderCindy MD [address] [place] [address] Social History Tobacco Use Types Packs/Day Years Used Date Smoking Tobacco: Never Smokeless Tobacco: Never Alcohol Use Standard Drinks/Week Comments No 0 (1 standard drink = 0.6 oz pur e alcohol) Comments Unknown Sex and Gender Information Value Date Recorded Sex Assigned at Not on file Legal Sex Female 11:51 PM SECURITY INSPECTOR Gender Identity Not on file Sexual Orientation Not on file documented as of this encounter Plan of Treatment Not on file documented as of this encounter Procedures Procedure Name Priority Date/Time Associated Diagnosis Comments DISCHARGE LABORATORY CUMULATIVE REPORT 10/23/2017 12:00 AM SECURITY INSPECTOR documented in this encounter Results * DISCHARGE LABORATORY CUMULATIVE REPORT (10/23/2017 12:00 AM SECURITY INSPECTOR) Narrative 10/23/2017 12:00 AM SECURITY INSPECTOR Ordered by an unspecified provider. us Historical Provider LAB BLOOD ORDERABLES Navya l Result documented in this encounter Visit Diagnoses Not on filedocumented in this encounter Care Teams Emergency Medical Technician/Driver Relationship Specialty Start Date End Date Eusebio Dickerson MD PCP - General 11/15/14 12/31/21 Abel Middleton PA [address] [place] [address] [place] [address] PCP - General Internal Medicine 05/08/22 05/17/24 Abel Middleton PA [address] [place] [address] [place] [address] PCP - General 01/01/22 01/01/22 Abel Middleton PA [address] [place] [address] [address] [place] [address] PCP - General Internal Medicine 01/31/22 05/07/22 He Whitney MD [address] [place] [address] [address] [address] PCP - General Family Practice 06/01/24 Martinez Boyce MD [facility] [address] [place] [address] Referring Physician Gastroenterology 04/12/18 01/10/24 Jacob Miranda, DPM [address] [place] [address] Consulting Physician Orthopedic Surgery 07/23/21 documented as of this encounter
--- OUTSIDE RECORDS SUMMARY | 2024-11-14 09:50 | XMS_ITS | Referral Summary ---
Author Organization [facility] Building A Address [address] [place] [address] Care Team Providers Care Die Sinking Machine Operator Name Role Phone Jacob Miranda DPM Unavailable [phone] He Whitney MD Primary Care Provider [phone] Encounters Date Type Department Care Team Description 08/24/2024 11:15 AM SENIOR SERVICE TECHNICIAN Therapy [facility] [place] [address] Jozef Cuenca, PT Dorsalgia, unspecified (Primary Dx); Low back pain, unspecified back pain laterality, unspecified chronicity, unspecified whether sciatica present 08/17/2024 10:30 AM SENIOR SERVICE TECHNICIAN Therapy [facility] [place] [address] Jozef Cuenca, PT Dorsalgia, unspecified (Primary Dx); Low back pain, unspecified back pain laterality, unspecified chronicity, unspecified whether sciatica present from Last 3 Months Allergies Active Allergy Reactions Criticality Noted Date [...] 04/09 Assessment & Plan (09/10/2023 6:58 AM SENIOR SERVICE TECHNICIAN): The patient was counseled on the importance [...] exercise Assessment & Plan (09/10/2023 6:58 AM SENIOR SERVICE TECHNICIAN): Counseled on heart healthy diet exercise Left carpal tunnel syndrome 04/14/2022 Overview (04/14/2022): Added automatically from request for surgery [id number] Pronator syndrome of left upper extremity 2021 Overview (04/14/2022): Added automatically from request for surgery [id number] Varicose veins of right lower extremity 07/23/20 Assessment & Plan (07/23/2020 3:00 PM SENIOR SERVICE TECHNICIAN): Pain brings her in wory about Dvt. [...] not Assessment & Plan (11/13/2020 9:52 AM SENIOR SERVICE TECHNICIAN): b12 dropped down to great and taking [...] interventino Assessment & Plan (11/13/2020 9:54 AM SENIOR SERVICE TECHNICIAN): Carpal tunnel better and not dropoing things [...] controlled. Assessment & Plan (08/01/2019 10:23 AM SENIOR SERVICE TECHNICIAN): Consider cockcup splints and report droping things Assessment & Plan (03/30/2019 3:13 PM CDT): Bilateral carpal tunnel and not D ropoing things and l much more issue then r. Ulnar nerve as well . 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 Assessment & Plan (09/10/2023 6:58 AM SENIOR SERVICE TECHNICIAN): The patient was counseled on a heart-healthy, [...] care. Assessment & Plan (07/24/2022 9:34 AM SENIOR SERVICE TECHNICIAN): The patient was counseled on a heart-healthy, [...] care. Assessment & Plan (07/23/2021 10:50 AM SENIOR SERVICE TECHNICIAN): L;dl at 55 and good and cont [...] limited. Assessment & Plan (11/13/2020 9:53 AM SENIOR SERVICE TECHNICIAN): ldl at 69 and would levave alone. [...] limited. Assessment & Plan (08/01/2019 10:22 AM SENIOR SERVICE TECHNICIAN): a1c at 6.6 and 6.5 cutoff no [...] 11/04 Assessment & Plan (09/10/2023 6:58 AM SENIOR SERVICE TECHNICIAN): Discussed community resources and any need for referrals. Health risk assessment reviewed. Providers and care team suppliers up-to-date. Age-appropriate Medicare preventive services check list reviewed. Discussed physical activities. Assessment & Plan (07/23/2021 10:53 AM SENIOR SERVICE TECHNICIAN): Well exzm depreosn screen neg and score [...] shot Assessment & Plan (11/04/2017 10:43 AM SENIOR SERVICE TECHNICIAN): 5 yrs from last and proposed to [...] return Assessment & Plan (11/04/2017 10:44 AM SENIOR SERVICE TECHNICIAN): Mild and new findign . On plavix [...] NOS Assessment & Plan (11/13/2020 9:51 AM SENIOR SERVICE TECHNICIAN): Vit d great and no chages and keep meds same Assessment & Plan (07/03/2020 9:49 AM CDT): Check on return Osteoporosis 01/21/2014 Overview (12/12/2016): OSTEOPOROSIS NEC Hypertension associated with diabetes 01/21/2014 Overview (12/12/2016): BENIGN HYPERTENSION Assessment & Plan (01/11/2024 7:45 AM CDT): Recommend DASH diet, heart healthy lifestyle, exercise. Discussed the risks of hypertension. Assessment & Plan (09/10/2023 6:58 AM SENIOR SERVICE TECHNICIAN): Recommend DASH diet, heart healthy lifestyle, exercise. [...] controlled. Assessment & Plan (07/23/2021 10:49 AM SENIOR SERVICE TECHNICIAN): a1c dropped reg to 6.5r now and [...] bp. Assessment & Plan (11/13/2020 9:52 AM SENIOR SERVICE TECHNICIAN): The bp good and a1c 6.9 stable [...] hypertension. Assessment & Plan (08/01/2019 10:22 AM SENIOR SERVICE TECHNICIAN): The bp good and no chanes and [...] bp. Assessment & Plan (08/19/2018 4:04 PM SENIOR SERVICE TECHNICIAN): Recommend DASH diet, heart-healthy lifestyle, exercise. Discussed [...] controlled. Assessment & Plan (11/04/2017 10:42 AM SENIOR SERVICE TECHNICIAN): As wt dropped and palns on more [...] 03/30/2019 Assessment & Plan (07/23/2021 10:49 AM SENIOR SERVICE TECHNICIAN): Mod fall rsik Assessment & Plan (07/03/2020 9:51 AM CDT): Mod fall risk Assessment & Plan (03/30/2019 3:10 PM CDT): Mod fall risk Adenomatous rectal polyp 03/02/2018 Overview (03/02/2018): Added automatically from request for surgery [id number] Hx of colonic polyps 11/11/2017 019 Overview (11/11/2017): Added automatically from request for surgery [id number] Morbid obesity with BMI of 5 0.0-59.9, adult ([facility]) 11/04/2017 07/24/2022 Assessment & Plan (04/10/2022 9:28 AM CDT): Morbid obesity is a bmi of 40 or more. Targeted weight loss with portion controll(calorie restriction) ,increased basal activity Levels along with adding an exercise program to lead to gradual weight loss,.Any program of change from weight watchers. To nutra system along with others work. Assessment & Plan (07/23/2021 10:48 AM SENIOR SERVICE TECHNICIAN): Morbid obesity is a bmi of 40 [...] work. Assessment & Plan (11/13/2020 9:53 AM SENIOR SERVICE TECHNICIAN): Morbid obesity is a bmi of 40 or more. Targeted weight loss with portion controll(calorie restriction) ,increased basal activity Levels along with adding an exercise program to lead to gradual weight loss,.Any program of change from weight watchers. To nutra system along with others work. Assessment & Plan (07/23/2020 2:56 PM SENIOR SERVICE TECHNICIAN): Morbid obesity is a bmi of 40 [...] recommended. Assessment & Plan (08/01/2019 10:22 AM SENIOR SERVICE TECHNICIAN): Morbid obesity is a bmi of 40 [...] work. Assessment & Plan (11/04/2017 10:57 AM SENIOR SERVICE TECHNICIAN): Morbid obesity is a bmi of 40 or more. Targeted weight loss with portion controll(calorie restriction) ,increased basal activity Levels along with adding an exercise program to lead to gradual weight loss,.Any program of change from weight watchers. To nutra system along with others work. Hyperlipidemia 09/23/2016 11/22/2018 Overview (12/12/2016): HYPERLIPIDEMIA NEC/NOS Assessment & Plan (11/04/2017 10:42 AM SENIOR SERVICE TECHNICIAN): ldl at 66 and good. No changesYour [...] Overview (12/12/2016): DMII WO CMP NT ST UNCNTR Assessment & Plan (08/19/2018 4:04 PM SENIOR SERVICE TECHNICIAN): The patient was counseled on a heart-healthy, [...] NOS Assessment & Plan (11/04/2017 10:58 AM SENIOR SERVICE TECHNICIAN): Morbid obesity is a bmi of 40 [...] To nutra system along with others work. Allergic state 01/21/2014 07/24/2022 Overview (12/12/2016): ALLERGY, UNSPECIFIED Assessment & Plan (06/30/2017 9:42 AM CDT): Stay on Zte. Trial adding singulair. Immunizations Immunization Administration Dates Next Due Influenza, Quad, Adjuvantate d, Intramuscular 06/15/2023 Influenza, Quadrivalent, Hig h Dose, Preservative Free, Intrr 06/18/2022,06/26/2021,06/19/2020 Influenza, Split 06/07/2011 Influenza, Trivalent, High D ose, Split, Preservative Free, Intramuscular 06/30/2019,06/22/2018,06/30/2017,06/05,05/05/2015,06/08/2014,07/15/2013 Influenza, Unspecified 11/21/2022(Deferr ed: Patient Refused),06/22/2018 Moderna SARS-CoV-2 Monovalen t Vaccination (12+ YRS) 07/20/2021,11/13/2020,10/16/2020 Pneumococcal Conjugate PCV 13 11/15/2014 Pneumococcal Polysaccharide PPV23 07/18/2003 ZOSTER Recombinant 11/14/2019,08/01/2019 Social History Tobacco Use Types Packs/Day Years [...] on file Legal Sex Female 11:51 PM SENIOR SERVICE TECHNICIAN Gender Identity Not on file Sexual Orientation Not on file Last Filed Vital Signs Vital Sign Reading [...] 03/09/2024 11:00 AM CDT Plan of Treatment Not on file Medical Devices Implanted Type Area Photo Editor Device Identifier Shelf Expiration Date Model / Serial / Lot [employer] Axoguard 7mm 40mm Nerve Protector Tissue Porcine Extracellular [id number] - [id number] Implanted:Qty: 1 on 05/06/2022 by Jose Alejandro Ortiz MD at [facility] Left: Arm [employer] 05/06/2023 [id number] / / [id number] Procedures Procedure Name Priority Date/Time Associated Diagnosis [...] CREATININE RATIO, URINE Routine 08/27/2023 8:08 AM SENIOR SERVICE TECHNICIAN 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 Testing performed by: [facility], [address] [place] [address], [place]., [address] Blood 04/27/2024 8:33 AM CDT 04/27/2024 12:56 PM CDT Abel MERCEDES LAB BLOOD ORDERABLES Fi nal Result JAMEE DAVIS (JERMAIN) 1 [facility] Department [place] [address] * Lipid panel (04/27/2024 8:33 AM CDT) [...] last revised on 2018. Testing performed by: [facility], [address] [place] [address]., [address] Triglycerides 69 <=149 mg/dL [facility] ([place]ERMAIN) Comment: Interpretive Data Ages < [...] last revised on 2018. Testing performed by: [facility], [address] [place] [address]., [address] HDL 55 >=40 mg/dL CERNALLELY AM H (JERMAIN) Comment: Interpretive Data Ages [...] last revised on 2018. Testing performed by: [facility], [address] [place] [address]., [address] LDL, calculated 81 <=129 mg/dL JAMEE DAVIS [...] 3. Basil Rivers et al. YUMIKO Cardiol. 2020 January 05;5(5):540-548. doi: 10.1001/jamacardio.2020.0013 Current Interpretive Data was last revised on 2024. Testing performed by: [facility], [address] [place] [address]., [address] Non-HDL Cholesterol 95 mg/dL JAMEE DAVIS (JERMAIN) [...] last revised on 2018. Testing performed by: [facility], [address] [place] [address]., [address] Chol/HDL ratio 3 AMBROSIO DAVIS (JERAMIN) Comment:Testing performed by : [facility], [address] [place] [address], [place]., [address] Blood 04/27/2024 8:33 AM CDT 04/27/2024 12:44 PM CDT Narrative JAMEE DAVIS (JERMAIN) - 04/27/2024 2:40 PM CDT Fasting us Abel MERCEDES LAB BLOOD ORDERABLES Fi nal Result JAMEE DAVIS (JERMAIN) 1 [facility] Department [place] [address] * Screening Mammogram Bilateral W Josh (01/19/2024 [...] - 5.6 % Comment:Testing performed by : [address] [address] Estimated Average Glucose 131 mg/dL JAMEE DAVIS (JERMAIN) Comment: The ADA recommends reporting an estimated Average Glucose (eAG) with all Hemoglobin A1c results using the equation derived from a study of 507 normal and diabetic adults. Minority populations were underrepresented and children were not included. (Diabetes Care 31:6175-0143, 2008). The eAG is not equivalent to a fasting glucose. Testing performed by: [facility], [address] [place] [address]., [address] Blood 12/28/2023 8:21 AM CDT 12/28/2023 12:25 PM CDT Narrative JAMEE DAVIS (JERMAIN) - 12/28/2023 12:57 PM CDT fasting Abel MERCEDES LAB BLOOD ORDERABLES nal Result JAMEE DAVIS (JERMAIN) 1 [facility] Department [place] [address] * Albumin Creatinine Ratio, Urine (08/27/2023 8:08 AM SENIOR SERVICE TECHNICIAN) [facility] Albumin Ur <12.0 mg/L [facility] H (JERMAIN) Comment: Interpretive Data No reference range established. Current interpretive data was last revised 2019. Testing performed by: [address] [address] Creatinine Ur 70.8 mg/dL JAMEE [facility] (JERMAIN) Comment: Interpretive Data No reference range established. Current interpretive data was last revised 2019. Testing performed by: [address] [address] Albumin Creatinine Ratio, Ur <17 1 - 29 mg/g JAMEE DAVIS (JERMAIN) Comment:Testing performed by : [address] [address] Urine 08/27/2023 8:08 AM SENIOR SERVICE TECHNICIAN 08/27/2023 12:53 PM SENIOR SERVICE TECHNICIAN Narrative JAMEE DAVIS (JERMAIN) - 08/27/2023 2:14 PM SENIOR SERVICE TECHNICIAN fasting us Abel MERCEDES LAB URINE ORDERABLES Fi nal Result JAMEE DAVIS (JERAMIN) 1 [facility] Department [place] [address] * Diabetic Eye Exam (07/21/2022) us Generic External Data Provider HEALTH MAINTENANC E Final Result * COLONOSCOPY (07/13/2019) Colonoscopy Normal Historical Provider MD HEALTH MAINTENANCE Final Result from Last 3 Months or Most Recently Relevant to Health Maintenance Insurance [employer] MEDICARE MEDICARE [employer]ICARE [employer] Advance Directives For more information, please contact: [phone] * Full Code (Latest Code Status on File) Date Activated Date Inactivated Comments 05/21/2018 7:11 PM 05/22/2018 5:26 PM * Full Code Date Activated Date Inactivated Comments 03/23/2018 10:20 AM 03/23/2018 4:04 PM * Full Code Date Activated Date Inactivated Comments 02/22/2018 7:27 AM 02/22/2018 11:55 AM Care Teams Die Sinking Machine Operator Relationship Specialty Start Date End Date He Whitney MD [address] [place] [address] PCP - General Family Practice 06/01/24 Jacob Miranda, DPM [address] [place] [address] Consulting Physician Orthopedic Surgery 07/23/21
[2024-11-14 18:44] LABS: Hematocrit 49.8 % (37.0-47.0); Hemoglobin 15.8 g/dL (12.0-15.0); Mean Corpuscular HGB Conc 31.7 g/dl (32-36); Mean Corpuscular Hemoglobin 30.3 pg (26-34); Mean Corpuscular Volume 95.6 fl (80-100); Mean Platelet Volume 9.8 fl (7.4-10.4); Platelet Count Result 338 k/mm3 (150-375); Red Blood Count 5.21 M/mm3 (4.2-5.4); Red Cell Distribution Width 14.2 % (11.5-14.5); White Blood Count 9.3 K/mm3 (4.5-10.0)
[2024-11-14 18:51] LABS: Alanine Aminotransferase 18 U/L (6-35); Albumin Level 4.5 g/dL (3.5-5.1); Alkaline Phosphatase 98 U/L (38-126); Anion Gap 9 mmol/L (4-12); Aspartate Amino Transferase 44 U/L (14-36); Bilirubin,Total 0.9 mg/dL (0.2-1.3); Blood Urea Nitrogen 21 mg/dL (7-17); Calcium 9.4 mg/dL (8.4-10.2); Carbon Dioxide 27 mmol/L (22-30); Chloride 100 mmol/L (98-107); Cholesterol 144 mg/dL (0-200); Estimated Glomerular Filt Rate > 60; Glucose 134 mg/dL (65-110); HDL Direct 58 mg/dL; Potassium 3.9 mmol/L (3.4-5.0); Sodium 136 mmol/L (137-145); Triglycerides 100 mg/dL (<150)
[2024-11-14 19:02] LABS: LDL Cholesterol Direct 51 mg/dL
[2024-11-14 19:56] LABS: Creatinine Urine 200.5 mg/dL
[2024-11-14 19:59] LABS: MALB Creatinine Ratio 16.3 mg/g (0-30); Microalbumin Urine Random 32.6 mg/L (0-16.7)
[2024-11-14 20:05] LABS: Vitamin D 25 Hydroxy 71.8 ng/mL
[2024-11-14 20:38] LABS: Hemoglobin A1C 6.3 % (<5.7)
== END 2024-11-14 08:59 | disposition home or self-care (01) ==
PROVIDERS: PCP Family Medicine; Visit Provider Family Medicine
DX: E03.9 Hypothyroidism, unspecified (principal); E11.9 Type 2 diabetes mellitus without complications; I10 Essential (primary) hypertension; I73.9 Peripheral vascular disease, unspecified; E55.9 Vitamin D deficiency, unspecified
CPT/HCPCS: 36415; 80053; 80061; 82043; 82306; 82607; 83036; 84443; 85027

== ENCOUNTER 2025-02-01 09:32 | Outpatient (CLI) | payer MEDICARE, SELFPAY ==
[2025-02-01 19:32] LABS: Basophils Absolute Auto 0.1 K/mm3 (0.0-0.1); Basophils Percent Auto 0.8 % (0.2-1.2); Eosinophils Absolute Auto 0.2 K/mm3 (0-0.3); Eosinophils Percent Auto 1.9 % (0-4.4); Hematocrit 48.8 % (37.0-47.0); Hemoglobin 15.4 g/dL (12.0-15.0); Immature Granulocyte Absolute 0.03 K/mm3 (0.00-0.031); Immature Granulocyte Percent A 0.4 % (0-0.5); Lymphocytes Absolute Auto 2.75 K/mm3 (0.9-3.2); Lymphocytes Percent Auto 34.9 % (18.3-44.2); Mean Corpuscular HGB Conc 31.6 g/dl (32-36); Mean Corpuscular Hemoglobin 30.1 pg (26-34); Mean Corpuscular Volume 95.5 fl (80-100); Mean Platelet Volume 10.1 fl (7.4-10.4); Monocytes Absolute Auto 0.6 K/mm3 (0.1-0.6); Monocytes Percent Auto 7.4 % (2.6-8.5); Neutrophils Absolute Auto 4.3 K/mm3 (1.3-6.7); Neutrophils Percent Auto 54.6 % (45.5-73.1); Platelet Count Result 331 k/mm3 (150-375); Red Blood Count 5.11 M/mm3 (4.2-5.4); Red Cell Distribution Width 14.8 % (11.5-14.5); White Blood Count 7.9 K/mm3 (4.5-10.0)
[2025-02-06 16:44] LABS: Erythropoietin (EPO) 6.7 mIU/mL (2.6-18.5)
== END 2025-02-01 09:33 | disposition home or self-care (01) ==
LOC: ANHBWCLAB 09:35
PROVIDERS: PCP Family Medicine; Visit Provider Family Medicine
DX: D75.1 Secondary polycythemia (principal)
CPT/HCPCS: 36415; 82668; 85025

== ENCOUNTER 2025-06-06 09:20 | Outpatient (CLI) | payer MEDICARE, SELFPAY ==
--- OUTSIDE RECORDS SUMMARY | 2025-06-06 09:55 | XMS_ITS | Clinical Summary ---
[facility] Address [address] [place] [address] Care Team Providers Care Pediatric Cardiologist Name Role Phone Jacob Miranda DPM Unavailable [phone] He Whitney MD Primary Care Provider [phone] Allergies Active Allergy Reactions Criticality Noted Date [...] next 30 min. 12 tablet 4 4 Active atorvastatin (LIPITOR) 10 mg tablet Take 1 tablet (10 mg total) by mouth daily 90 tablet 3 4 Active Active Problems Problem Noted Date Diagnosed Date Morbid obesity with BMI of 45.0-49.9, adult 04/09 Assessment & Plan (09/10/2023 6:58 AM EXCHANGE CONSULTANT): The patient was counseled on the [...] exercise Assessment & Plan (09/10/2023 6:58 AM EXCHANGE CONSULTANT): Counseled on heart healthy diet exercise Left carpal tunnel syndrome 04/14/2022 Overview (04/14/2022): Added automatically from request for surgery [id number] Pronator syndrome of left upper extremity 2021 Overview (04/14/2022): Added automatically from request for surgery [id number] Varicose veins of right lower extremity 07/23/20 Assessment & Plan (07/23/2020 3:00 PM EXCHANGE CONSULTANT): Pain brings her in wory about [...] not Assessment & Plan (11/13/2020 9:52 AM EXCHANGE CONSULTANT): b12 dropped down to great and [...] interventino Assessment & Plan (11/13/2020 9:54 AM EXCHANGE CONSULTANT): Carpal tunnel better and not dropoing [...] controlled. Assessment & Plan (08/01/2019 10:23 AM EXCHANGE CONSULTANT): Consider cockcup splints and report droping things Assessment & Plan (03/30/2019 3:13 PM CDT): Bilateral carpal tunnel and not D ropoing things and l much more issue then r. Ulnar nerve as well . 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 Assessment & Plan (09/10/2023 6:58 AM EXCHANGE CONSULTANT): The patient was counseled on a [...] care. Assessment & Plan (07/24/2022 9:34 AM EXCHANGE CONSULTANT): The patient was counseled on a [...] care. Assessment & Plan (07/23/2021 10:50 AM EXCHANGE CONSULTANT): L;dl at 57 and good and [...] limited. Assessment & Plan (11/13/2020 9:53 AM EXCHANGE CONSULTANT): ldl at 71 and would levave [...] limited. Assessment & Plan (08/01/2019 10:22 AM EXCHANGE CONSULTANT): a1c at 6.6 and 6.5 cutoff [...] 11/04 Assessment & Plan (09/10/2023 6:58 AM EXCHANGE CONSULTANT): Discussed community resources and any need for referrals. Health risk assessment reviewed. Providers and care team suppliers up-to-date. Age-appropriate Medicare preventive services check list reviewed. Discussed physical activities. Assessment & Plan (07/23/2021 10:53 AM EXCHANGE CONSULTANT): Well exzm depreosn screen neg and [...] shot Assessment & Plan (11/04/2017 10:43 AM EXCHANGE CONSULTANT): 5 yrs from last and proposed [...] return Assessment & Plan (11/04/2017 10:44 AM EXCHANGE CONSULTANT): Mild and new findign . On [...] NOS Assessment & Plan (11/13/2020 9:51 AM EXCHANGE CONSULTANT): Vit d great and no chages and keep meds same Assessment & Plan (07/03/2020 9:49 AM CDT): Check on return Osteoporosis 01/21/2014 Overview (12/12/2016): OSTEOPOROSIS NEC Hypertension associated with diabetes 01/21/2014 Overview (12/12/2016): BENIGN HYPERTENSION Assessment & Plan (01/11/2024 7:45 AM CDT): Recommend DASH diet, heart healthy lifestyle, exercise. Discussed the risks of hypertension. Assessment & Plan (09/10/2023 6:58 AM EXCHANGE CONSULTANT): Recommend DASH diet, heart healthy lifestyle, [...] controlled. Assessment & Plan (07/23/2021 10:49 AM EXCHANGE CONSULTANT): a1c dropped reg to 6.5r now [...] bp. Assessment & Plan (11/13/2020 9:52 AM EXCHANGE CONSULTANT): The bp good and a1c 6.9 [...] hypertension. Assessment & Plan (08/01/2019 10:22 AM EXCHANGE CONSULTANT): The bp good and no chanes [...] bp. Assessment & Plan (08/19/2018 4:04 PM EXCHANGE CONSULTANT): Recommend DASH diet, heart-healthy lifestyle, exercise. [...] controlled. Assessment & Plan (11/04/2017 10:42 AM EXCHANGE CONSULTANT): As wt dropped and palns on [...] 03/30/2019 Assessment & Plan (07/23/2021 10:49 AM EXCHANGE CONSULTANT): Mod fall rsik Assessment & Plan (07/03/2020 9:51 AM CDT): Mod fall risk Assessment & Plan (03/30/2019 3:10 PM CDT): Mod fall risk Adenomatous rectal polyp 03/02/2018 Overview (03/02/2018): Added automatically from request for surgery [id number] Hx of colonic polyps 11/11/2017 019 Overview (11/11/2017): Added automatically from request for surgery [id number] Morbid obesity with BMI of 5 0.0-59.9, adult ([facility]) 11/04/2017 07/24/2022 Assessment & Plan (04/10/2022 9:28 AM CDT): Morbid obesity is a bmi of 40 or more. Targeted weight loss with portion controll(calorie restriction) ,increased basal activity Levels along with adding an exercise program to lead to gradual weight loss,.Any program of change from weight watchers. To nutra system along with others work. Assessment & Plan (07/23/2021 10:48 AM EXCHANGE CONSULTANT): Morbid obesity is a bmi of [...] work. Assessment & Plan (11/13/2020 9:53 AM EXCHANGE CONSULTANT): Morbid obesity is a bmi of 40 or more. Targeted weight loss with portion controll(calorie restriction) ,increased basal activity Levels along with adding an exercise program to lead to gradual weight loss,.Any program of change from weight watchers. To nutra system along with others work. Assessment & Plan (07/23/2020 2:56 PM EXCHANGE CONSULTANT): Morbid obesity is a bmi of 40 or more. Targeted weight loss with portion controll(calorie restriction) ,increased basal activity Levels along with adding an exercise program to lead to gradual weight loss,.Any program of change from weight watchers. To [place]angu[place] system along with others work. Assessment & [...] recommended. Assessment & Plan (08/01/2019 10:22 AM EXCHANGE CONSULTANT): Morbid obesity is a bmi of [...] work. Assessment & Plan (11/04/2017 10:57 AM EXCHANGE CONSULTANT): Morbid obesity is a bmi of 40 or more. Targeted weight loss with portion controll(calorie restriction) ,increased basal activity Levels along with adding an exercise program to lead to gradual weight loss,.Any program of change from weight watchers. To nutra system along with others work. Hyperlipidemia 09/23/2016 11/22/2018 Overview (12/12/2016): HYPERLIPIDEMIA NEC/NOS Assessment & Plan (11/04/2017 10:42 AM EXCHANGE CONSULTANT): ldl at 68 and good. No [...] insulin 01/21/2014 11/22/2018 Overview (12/12/2016): DMII WO [facility] Assessment & Plan (08/19/2018 4:04 PM EXCHANGE CONSULTANT): The patient was counseled on a [...] NOS Assessment & Plan (11/04/2017 10:58 AM EXCHANGE CONSULTANT): Morbid obesity is a bmi of [...] To nutra system along with others work. [facility] state 01/21/2014 07/24/2022 Overview (12/12/2016): ALLERGY, UNSPECIFIED Assessment & Plan (06/30/2017 9:42 AM CDT): [facility] adding singulair. Immunizations Immunization Administration Dates [...] Medical vit D def Hx Other Medical [address] [place] Diverticulosis Hypertension Type 2 diabetes mellitus Arthritis Cataract Hypertension Arthritis Peripheral vascular disease Family History Medical History Relation Name Comments Colon cancer Brother 1 Other Brother 5 CA lung?; Other Brother 6 skin CA; Heart disease Brother 7 Heart disease; Other Brother 8 CA prostate; Other Father coal trimmer machine operator lung disease; Heart disease Mother Heart disease; [...] on file Legal Sex Female 11:51 PM EXCHANGE CONSULTANT Gender Identity Not on file Sexual [...] 11:00 AM CDT Height 147.3 cm (4' 10) 03/09/2024 11:00 AM CDT Body Mass Index 48.7 03/09/2024 11:00 AM CDT Plan of Treatment Health Maintenance Due Date Last Done Comments DTaP/Tdap/Td Vaccine (1 - Tdap) 1951 Foot Exam 05/06/2024 05/06/2023, 07/08, 11/13/2020, Additional history exists Hemoglobin A1C 06/28/2024 12/28/2023, [...] 04/27/2025 04/27/2024, 12/07, 08/27/2023, Additional history exists Covid-19 Vaccine ( - 2024-2 6 season) 2025 06/23/2023, 07/20/2021, 11/13/2020, Additional history exists Influenza Vaccine (#1) 2025 , 06/18/2022, 06/26/2021, Additional history exists Osteoporosis Screening-Bone Density Scan 01/18/2026 01/19/2024, 01/03/2010 Pneumococcal vaccine 65+ Completed 11/15/2014, 07/08 Colon [...] Completed 04/27/2024 Medical Devices Implanted Type Area Shipping Clerk/Admin Device Identifier Shelf Expiration Date Model / Serial / Lot [employer] Axoguard 7mm 40mm Nerve Protector Tissue Porcine Extracellular [id number] - [id number] Implanted:Qty: 1 on 05/06/2022 by Jose Alejandro Ortiz MD at [facility] Left: Arm [employer] 05/06/2023 [id number] / / [id number] Procedures Procedure Name Priority Date/Time Associated Diagnosis Comments EGFR Routine 04/27/2024 8:33 AM CDT Pure hypercholesterolemia LIPID PANEL Routine 04/27/2024 8:33 AM CDT Pure hypercholesterolemia DEXA AXIAL SKELETON BONE DENSITY 1 OR MORE SITES Schedule Routine, Read Routine (OP Routine) 01/19/2024 11:14 AM CDT Post-menopause Osteopenia, unspecified location SCREENING MAMMOGRAM BILATERAL W JOSH Schedule Routine, Read Routine (OP Routine) 01/19/2024 10:52 AM CDT Visit for screening mammogram HEMOGLOBIN A1C Routine 12/28/2023 8:21 AM CDT Hypertension associated with diabetes (CMS/HCC) Pure hypercholesterolemia Type 2 diabetes mellitus with hyperlipidemia (HCC) ALBUMIN CREATININE RATIO, URINE Routine 08/27/2023 8:08 AM EXCHANGE CONSULTANT Type 2 diabetes mellitus with hyperlipidemia [...] was last reviewed 2021. Testing performed by: [facility], [address] [place] [address], [place]., [address] Blood 04/27/2024 8:33 AM CDT 04/27/2024 12:56 PM CDT us Abel MERCEDES LAB BLOOD ORDERABLES Fi nal Result [facility] [place]) [facility] Department [place] [address] * Lipid panel (04/27/2024 8:33 [...] last revised on 2018. Testing performed by: [facility], [address] [place] [address]., [address] Triglycerides 69 <=149 mg/dL JAMEE DAVIS ([place]) Comment: Interpretive Data [...] last revised on 2018. Testing performed by: [facility], [address] [place] [address]., [address] HDL 55 >=40 mg/dL JAMEE Taveras ([place]) Comment: Interpretive Data Ages < or [...] last revised on 2018. Testing performed by: [facility], [address] [place] [address]., [address] LDL, calculated 81 <=129 mg/dL JAMEE DAVIS [...] last revised on 2024. Testing performed by: [address] [address] Non-HDL Cholesterol 95 mg/dL JAMEE DAVIS ([place]) [...] last revised on 2018. Testing performed by: [address] [address] Chol/HDL ratio 3 AMBROSIO DAVIS ([place]) Comment:Testing performed by : [facility], [address] [place] [address]., [address] Blood 04/27/2024 8:33 AM CDT 04/27/2024 12:44 PM CDT Narrative JAMEE DAVIS ([place]) - 04/27/2024 2:40 PM CDT Fasting us Abel MERCEDES LAB BLOOD ORDERABLES Fi nal Result JAMEE DAVIS ([place]) [address] [facility] [place] [address] * Dexa Axial Skeleton Bone Density 1 or 2 Site (01/19/2024 11:14 AM CDT) Anatomical Region Laterality Modality Body N/A Other 01/19/2024 6:50 PM CDT Narrative 01/19/2024 6:52 PM CDT EXAM DESCRIPTION: DEXA AXIAL SKELETON BONE DENSITY 1 OR MORE SITES REASON FOR STUDY: 83 y/o year old F with given history of: post menopause; osteopenia screening 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 REFERENCE: Bone mineral density: T-Score: Normal (T-score above or = -1.0) Low bone mass (T-score between -1.0 and -2.5) replaces the previously used term osteopenia Osteoporosis (T-score = or below -2.5) Z-Score: Within the expected range for age (Z-score above -2.0) Below the expected range for age (Z-score is -2.0 or below) Please see below follow up recommendations. Medical evaluation for secondary causes of low bone mineral density may be appropriate. FRAX is a World Health Organization validated fracture risk assessment tool that calculates a person's 10 year probability of a major osteoporosis related fracture and hip fracture. According to the National Osteoporosis Foundation guidelines, postmenopausal women and men age 50 or older with low bone mass and a 10 year probability of a major osteoporosis related fracture = or greater than 20% or a 10 year probability of a hip fracture = or greater than 3% should be considered for pharmacological treatment for the prevention of osteoporosis. For further information, including treatment recommendations, please refer to the 2019 ISCD Official Positions (http://www.iscd.org) and the NOF's Clinician's Guide to Prevention and Treatment of Osteoporosis (http://www.nof.org/professionals/clinical-guidelines) THIS IS AN ELECTRONICALLY VERIFIED FINAL REPORT 01/19/2024 6:52 PM - Electronically signed by Jacob Diamond M.D. 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 REFERENCE: Bone mineral density: T-Score: Normal (T-score above or = -1.0) Low bone mass (T-score between -1.0 and -2.5) replaces thepreviously used term osteopenia Osteoporosis (T-score = or below -2.5) Z-Score: Within the expected range for age (Z-score above -2.0) Below the expected range for age (Z-score is -2.0 or below) Please see below follow up recommendations. Medical evaluation forsecondary causes of low bone mineral density may be appropriate. FRAX is a World Health Organization validated fracture risk assessmenttool that calculates a person's 10 year probability of a major osteoporosisrelated fracture and hip fracture. According to the National OsteoporosisFoundation guidelines, postmenopausal women and men age 50 or older with low bonemass and a 10 year probability of a major osteoporosis related fracture = or greater than 20% or a 10 year probability of a hip fracture = or greaterthan 3% should be considered for pharmacological treatment for the preventionof osteoporosis. For further information, including treatment recommendations, please referto the 2019 ISCD Official Positions (http://www.iscd.org) and the NOF's Clinician's Guide to Prevention and Treatment of Osteoporosis (http://www.nof.org/professionals/clinical-guidelines) THIS IS AN ELECTRONICALLY VERIFIED FINAL REPORT 01/19/2024 6:52 PM - Electronically signed by Jacob Diamond M.D. MF: [email or web address] Report ID: [id number] Reading Location: [place] [address] Abel MECREDES IMG DXA PROCEDURES Navya l Result * Screening Mammogram Bilateral W Josh (01/19/2024 [...] her next mammogram. Electronically signed by: Yunier Macdams M.D. Narrative 01/19/2024 11:29 AM CDT EXAMINATION: [...] There has been no suspicious interval change. Abel MERCEDES IMG MAMMO PROCEDURES Fi nal Result * (ABNORMAL) Hemoglobin A1c (12/28/2023 8:21 AM CDT) Hgb A1C 6.2(H) 4.0 - 5.6 % Comment:Testing performed by : [address] [address] Estimated Average Glucose 131 mg/dL [facility] ([place]) Comment: The ADA recommends reporting an estimated Average Glucose (eAG) with all Hemoglobin A1c results using the equation derived from a study of 507 normal and diabetic adults. Minority populations were underrepresented and children were not included. (Diabetes Care 31:3172-8367, 2008). The eAG is not equivalent to a fasting glucose. Testing performed by: [address] [address] Blood 12/28/2023 8:21 AM CDT 12/28/2023 12:25 PM CDT Narrative [facility] ([place]) - 12/28/2023 12:57 PM CDT fasting Abel MERCEDES LAB BLOOD ORDERABLES Fi nal Result JAMEE DAVIS ([place]) [address] [facility] Department [place] [address] * Albumin Creatinine Ratio, Urine (08/27/2023 8:08 AM EXCHANGE CONSULTANT) Albumin Ur <12.0 mg/L CERNER [facility] ([place]) Comment: Interpretive Data No reference range established. Current interpretive data was last revised 2019. Testing performed by: [address] [address] Creatinine Ur 70.8 mg/dL [facility] ([place] Comment: Interpretive Data No reference range established. Current interpretive data was last revised 2019. Testing performed by: [address] [address] Albumin Creatinine Ratio, Ur <17 1 - 29 mg/g JAMEE DAVIS ([place]) Comment:Testing performed by : [facility], [address] [place] [address], [place]., [address] Urine 08/27/2023 8:08 AM EXCHANGE CONSULTANT 08/27/2023 12:53 PM EXCHANGE CONSULTANT Narrative JAMEE DAVIS ([place]) - 08/27/2023 2:14 PM EXCHANGE CONSULTANT fasting us Abel MERCEDES LAB URINE ORDERABLES Fi nal Result JAMEE DAVIS ([place]) [address] [facility] Department [place] [address] * Diabetic Eye Exam (07/21/2022) us Generic External Data Provider HEALTH MAINTENANC E Final Result * COLONOSCOPY (07/13/2019) Colonoscopy Normal Historical Provider HEALTH MAINTENANCE Final Result from Last 3 Months or Most Recently Relevant to Health Maintenance Insurance [employer] MEDICARE MEDICARE [employer] MEDICARE [employer] Advance Directives For more information, please contact: [phone] * Full Code (Latest Code Status on File) Date Activated Date Inactivated Comments 05/21/2018 7:11 PM 05/22/2018 5:26 PM * Full Code Date Activated Date Inactivated Comments 03/23/2018 10:20 AM 03/23/2018 4:04 PM * Full Code Date Activated Date Inactivated Comments 02/22/2018 7:27 AM 02/22/2018 11:55 AM Care Teams Pediatric Cardiologist Relationship Specialty Start Date End Date He Whitney MD [address] [place] [address] PCP - General Family Practice 06/01/24 Jacob Miranda, DPM [address] [place] [address] Consulting Physician Orthopedic Surgery 07/23/21
--- OUTSIDE RECORDS SUMMARY | 2025-06-06 09:55 | XMS_ITS | Encounter Summary ---
Author Organization [facility] Address [address] [place] [address] Phone Care Team Providers Care Etl Programmer Name Role Phone Eusebio Dickerson MD Primary Care Provi henrry Martinez Boyce MD Unavailable [phone] Jacob Miranda DPM Unavailable [phone] Abel Middleton Primary Care Provider Abel Middleton Primary Care Provider Abel Middleton Primary Care Provider He Whitney MD Primary Care Provider [phone] Encounter Details Date Type Department Care Team (Late st Contact Info) Description 10/23/2017 Orders Only [facility] ProviderCindy MD [address] [place] [address] Social History Tobacco Use Types Packs/Day Years Used Date Smoking Tobacco: Never Smokeless Tobacco: Never Alcohol Use Standard Drinks/Week Comments No 0 (1 standard drink = 0.6 oz pur e alcohol) Comments Unknown Sex and Gender Information Value Date Recorded Sex Assigned at Not on file 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 us Historical Provider LAB BLOOD ORDERABLES Navya l Result documented in this encounter Visit Diagnoses Not on filedocumented in this encounter Care Teams Etl Programmer Relationship Specialty Start Date End Date Eusebio Dickerson MD PCP - General 11/15/14 12/31/21 Abel Middleton PA [address] [place] [address] [place] [address] PCP - General Internal Medicine 05/08/22 05/17/24 Abel iMddleton PA [address] [place] [address] [place] [address] PCP - General 01/01/22 01/01/22 Abel Middleton PA [address] [place] [address] [address] [place] [place] [address] PCP - General Internal Medicine 01/31/22 05/07/22 He Whitney MD [address] [place] [address] [address] [place] [address] PCP - General Family Practice 06/01/24 Martinez Boyce MD [facility] [address] [place] [address] Referring Physician Gastroenterology 04/12/18 01/10/24 Jacob Miranda, DPM [address] [place] [address] Consulting Physician Orthopedic Surgery 07/23/21 documented as of this encounter
--- OUTSIDE RECORDS SUMMARY | 2025-06-06 09:55 | XMS_ITS | Encounter Summary ---
Author Organization [facility] Address [address] [place] [address] Phone Care Team Providers Care Group Tester Name Role Phone Martinez Boyce MD Unavailable [phone] Jacob Miranda DPM Unavailable [phone] Abel Middleton Primary Care Provider Abel Middleton Primary Care Provider He Whitney MD Primary Care Provider [phone] Encounter Details Date Type Department Care Team (Late st Contact Info) Description 04/16/2022 Telephone [facility] Medicine [facility] Surgery [address] [place] [address] [address] [place] [address] [place] Social History Tobacco [...] on file 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 Gender Identity Not on file Sexual Orientation Not on file documented as of this encounter Plan of Treatment Not on file documented as of this encounter Visit Diagnoses Not on filedocumented in this encounter Care Teams Group Tester Relationship Specialty Start Date End Date Abel Middleton PA [address] [place] [address] [place] [address] PCP - General Internal Medicine 05/08/22 05/17/24 Abel Middleton PA [address] [place] [address] [place] [address] PCP - General Internal Medicine 01/31/22 05/07/22 He Whitney MD [address] [place] [address] [place] [address] PCP - General Family Practice 06/01/24 Martinez Boyce MD [address] [facility] [address] [place] [address] Referring Physician Gastroenterology 04/12/18 01/10/24 Jacob Miranda, DPM [address] [place] [address] Consulting Physician Orthopedic Surgery 07/23/21 documented as of this encounter
[2025-06-06 19:16] LABS: Hematocrit 46.0 % (37.0-47.0); Hemoglobin 14.6 g/dL (12.0-15.0); Immature Granulocyte Percent A 0.1 % (0-0.5); Lymphocytes Absolute Auto 2.20 K/mm3 (0.9-3.2); Mean Corpuscular HGB Conc 31.7 g/dl (32-36); Mean Corpuscular Hemoglobin 29.9 pg (26-34); Mean Corpuscular Volume 94.3 fl (80-100); Nucleated Red Blood Cells Absolute Auto 0.000 K/mm3 (0.0-0.012); Nucleated Red Blood Cells Perc 0.0 % (0.0-0.2); Platelet Count Result 296 k/mm3 (150-375); Red Blood Count 4.88 M/mm3 (4.2-5.4); White Blood Count 7.6 K/mm3 (4.5-10.0)
[2025-06-06 19:47] LABS: Alanine Aminotransferase 17 U/L (6-35); Albumin Level 4.2 g/dL (3.5-5.1); Alkaline Phosphatase 84 U/L (38-126); Anion Gap 6 mmol/L (4-12); Aspartate Amino Transferase 50 U/L (14-36); Bilirubin,Total 0.9 mg/dL (0.2-1.3); Blood Urea Nitrogen 18 mg/dL (7-17); Calcium 9.3 mg/dL (8.4-10.2); Carbon Dioxide 26 mmol/L (22-30); Chloride 102 mmol/L (98-107); Estimated Glomerular Filt Rate > 60; Glucose 130 mg/dL (65-110); Potassium 3.9 mmol/L (3.4-5.0); Sodium 134 mmol/L (137-145); Total Protein 7.3 g/dL (6.3-8.2)
[2025-06-06 20:11] LABS: Hemoglobin A1C 6.4 % (<5.7)
[2025-06-06 20:25] LABS: Thyroid Stimulating Hormone 1.810 uIU/mL (0.465-4.680)
[2025-06-06 20:44] LABS: Vitamin B12 445.0 pg/mL (239-931)
== END 2025-06-06 09:21 | disposition home or self-care (01) ==
PROVIDERS: PCP Family Medicine; Visit Provider Family Medicine
DX: I10 Essential (primary) hypertension (principal); E03.9 Hypothyroidism, unspecified; E11.9 Type 2 diabetes mellitus without complications; I73.9 Peripheral vascular disease, unspecified; E55.9 Vitamin D deficiency, unspecified
CPT/HCPCS: 36415; 80053; 82306; 82607; 83036; 84443; 85025

== ENCOUNTER 2025-06-14 09:19 | Outpatient (CLI) | payer MEDICARE, SELFPAY ==
[2025-06-14 20:22] LABS: Hepatitis B Surface Antigen Negative (Negative)
[2025-06-14 20:29] LABS: HAV RESULT Negative (Negative); Hepatitis B Core IgM Result Negative (Negative)
== END 2025-06-14 09:20 | disposition home or self-care (01) ==
PROVIDERS: PCP Family Medicine; Visit Provider Family Medicine
DX: R74.01 Elevation of levels of liver transaminase levels (principal)
CPT/HCPCS: 36415; 80074

== ENCOUNTER 2025-06-15 08:36 | Outpatient (CLI) | payer MEDICARE, SELFPAY ==
--- NOTE | ~2025-06-15 | US_ITS ---
ULTRASOUND ABDOMEN LIMITED (RIGHT UPPER QUADRANT) Clinical History: R74.01 - Elevation of levels of liver transaminase levels Comparison: None Technique: Right upper quadrant sonography Findings: Liver: Very poorly seen. Normal size. Echogenic. No intrahepatic biliary ductal dilatation. Normal hepatopedal flow main portal vein. Common Duct: Normal caliber. 4 mm. Gallbladder: Removed. Pancreas: Obscured by overlying bowel gas. IMPRESSION: 1. Liver very poorly seen. 2. Probable hepatic steatosis and/or hepatocellular disease. Reviewed, dictated and finalized at location R.
== END 2025-06-15 08:37 | disposition home or self-care (01) ==
LOC: MICIMG 08:37
PROVIDERS: PCP Family Medicine; Visit Provider Family Medicine
DX: R93.2 Abnormal findings on diagnostic imaging of liver and biliary tract (principal); R74.01 Elevation of levels of liver transaminase levels
CPT/HCPCS: 76705

== ENCOUNTER 2025-07-04 09:09 | Outpatient (CLI) | payer MEDICARE, SELFPAY ==
--- NOTE | ~2025-07-04 | DEXA_ITS ---
Bone Density Report Name: BERTHA EDGE Age: 85 Sex: Female Ethnicity: White Date of : 1940 Indication: postmenopausal; screening for osteoporosis; height loss; Referring Provider: SILVIANO RICHARD Study: Bone densitometry was performed. Exam Date: July 04, 2025 Accession number: [id number] Bone Density: Region BMD T-score Z-score Classification AP Spine(L2, L3) 1.157 0.9 3.8 Normal Femoral Neck (Left) 0.732 -1.1 1.5 Osteopenia Total Hip (Left) 0.939 0.0 2.3 Normal Femoral Neck (Right) 0.598 -2.3 0.3 Osteopenia Total Hip (Right) 0.829 -0.9 1.4 Normal Total Hip Mean 0.884 -0.5 1.9 Normal World Health Organization criteria for BMD impression classify patients as: Normal (T-score at or above -1.0), Osteopenia (T-score between -1.0 and -2.5), or Osteoporosis (T-score at or below -2.5). 10-year Fracture Risk(1): Major Osteoporotic Fracture 12% Hip Fracture 3.6% Reported Risk Factors: [place] (), Neck BMD=0.598, BMI=52.2 (1) FRAX(R) Version 3.08. Fracture probability calculated for an untreated patient. Fracture probability may be lower if the patient has received treatment. Clinical Information Provided by Patient: Has used the following medications: Vitamin D, Calcium Patient maximum height was 62 Menopause Age: 50 No regular weight bearing exercise Drinks caffeinated beverages Onset of menses at age 14 Number of children 2 Impression: The patient has low bone mass, based on the Right Femoral Neck T-score. The patient has an estimated ten-year risk of hip fracture of 3.6% and an estimated ten-year risk of major fracture of 12%, based on the WHO FRAX algorithm. Discussion: BONE DENSITY IS LOW AT ONE OR MORE SKELETAL SITES. THE PATIENT'S BMD AND CLINICAL RISK FACTORS CONTRIBUTE TO THIS PATIENT'S INCREASED RISK OF FRACTURE. This patient's lowest T-score is low at one or more skeletal sites. It meets the World Health Organization's (WHO) criteria for ?low bone mass? (T-score between -1.0 and -2.5). The patient's 10-year risk of hip fracture as calculated by FRAX exceeds the threshold where pharmacological therapy is recommended by the National Osteoporosis Foundation (NOF). However, all treatment decisions require clinical judgment and consideration of individual patient factors, including patient preferences, comorbidities, previous drug use, risk factors not captured in the FRAX model (e.g., frailty, falls, vitamin D deficiency, increased bone turnover, interval significant decline in bone density) and possible under or overestimation of fracture risk by FRAX. The patient should follow a healthful lifestyle (good nutrition with adequate calcium and vitamin D, and appropriate weight-bearing exercise). Follow-Up: Consider a repeat BMD and Vertebral Fracture Assessment (VFA) exam in 2 years or sooner if medically necessary, to reassess this patient's status. Reported by: JORDAN on 07/04/2025 10:29:00 AM. Reviewed, dictated and finalized at location A.
== END 2025-07-04 09:10 | disposition home or self-care (01) ==
LOC: MICIMG 09:09
PROVIDERS: PCP Family Medicine; Visit Provider Family Medicine
DX: M85.852 Other specified disorders of bone density and structure, left thigh (principal); M85.851 Other specified disorders of bone density and structure, right thigh; M81.0 Age-related osteoporosis without current pathological fracture; Z78.0 Asymptomatic menopausal state
CPT/HCPCS: 77080